=== PATIENT | male | born 1950 | race Caucasian/White ===

== ENCOUNTER 2016-11-05 22:27 | Emergency (ER) | payer BC ==
[~2016-11-05] VITALS: Ht 177.8 cm; Wt 113.2 kg
[~2016-11-05 22:27] MED LIST: ASPI81TA28 PO; MULT-506 PO; OMEG10007 PO
[2016-11-05 22:31] VITALS: TEMP 36.9; Ht 177.8 cm; Wt 113.2 kg
[2016-11-05] MEDS ORDERED: ALL100 PO (23:05)
[2016-11-05] MEDS ORDERED: MELO15TA4 PO (23:05)
[2016-11-05] MEDS ORDERED: PRED20TA2 PO (23:06)
[2016-11-05] MEDS ORDERED: CEFTRIAXONE SOD INJ 1 GM ADDVIAL IV STA (23:08)
[2016-11-05] MEDS ORDERED: SODIUM CHLORIDE 0.9% 1000ML 1,000 ML IV ONE (23:15)
[2016-11-05 23:45] LABS: BASO % 0.2 %; BASO ABS # 0.01 K/uL (0-0.2); COMPLETE YES; EOS % 0.8 %; HEMATOCRIT 39.1 % (42-52); IG% 0.2 %; LYMPH ABS # 1.12 K/uL (1.2-3.4); MEAN CELL VOLUME 83.5 fL (80-100); MEAN CORPUSCULAR HEMOGLOBIN 28.6 pg (25-34); MEAN CORPUSCULAR HGB CONC 34.3 g/dl (32-36); MEAN PLATELET VOLUME 10.2 fL (7.4-10.4); MONO % 14.2 %; NEUT % 67.6 %; PLATELET COUNT 167 K/uL (130-400); RED BLOOD COUNT 4.68 M/uL (4.7-6.1); WHITE BLOOD COUNT 6.57 K/uL (4.8-10.8)
[2016-11-06 00:04] LABS: BUN/CREATININE RATIO 19.4 (10-20); CALCIUM 8.7 mg/dl (8.5-10.1); CREATININE 0.92 mg/dl (0.60-1.40); URIC ACID 5.6 mg/dl (2.6-7.2)
[2016-11-06 00:07] LABS: C-REACTIVE PROTEIN 6.03 mg/dl (0-0.29)
[2016-11-06 00:45] LABS: LYME DISEASE AB IGG NEG (NEG); LYME DISEASE AB IGM NEG (NEG)
[2016-11-06] MEDS ORDERED: SULF800T23 PO (01:34)
[2016-11-06] MEDS ORDERED: SEPTRA DS HOME PACK 1 EA VIAL PO ONE (01:45)
[2016-11-06 01:47] VITALS: BP 127/81; PULSE 62; O2SAT 97
--- NOTE | 2016-11-06 06:21 | EMERGENCY ROOM VISIT NOTE ---
History First contact with patient: 22:58 Chief Complaint: FOOT PAIN Stated Complaint: PROBLEM WITH LEFT FOOT History of Present Illness The patient is a 65 year old male who presents to the Emergency Room with complaints of worsening swelling of his left foot over the past 2-3 days. Patient started with symptoms of a bug bite on the top of his foot and went to the local urgent care clinic 2 days ago. The patient was started on prednisone this did not improve his symptoms. The patient returned to the urgent care clinic this morning where he was started on Keflex. The patient has had worsening redness and swelling, with the swelling now into his left ankle. The patient is not diabetic. He does not recall other injury or trauma. He does not have significant pain and is able to ambulate. He has not had similar symptoms in the past. He is on allopurinol but this does not feel like gout. He rates his current discomfort a 2/10. Review of Systems More than 10 systems were reviewed and otherwise negative with the exception of history of present illness. Past Medical/Surgical History Medical Problems: (1) Fracture Two Ribs-Closed (2) Umbilical Hernia Family History Diabetes mellitus FH: cardiovascular disease Social History Smoking Status: Never Smoker Marital Status: Housing Status: lives with family Occupation Status: employed Current/Historical Medications Scheduled Allopurinol (Allopurinol), 100 MG PO DAILY Aspirin (Aspirin Ec), 81 MG PO QAM Fish Oil ([place]-3), 2 CAP PO QAM Multivitamin (Multivitamin), 1 TAB PO QAM Prednisone (Prednisone Tab), PO UD Sulfa/Trimethoprim (Bactrim Ds 800MG/160MG), 1 TAB PO BID Scheduled PRN Meloxicam (Meloxicam), 15 MG PO DAILY PRN for Pain Allergies Coded Allergies: No Known Allergies (Unverified , 11/22/15) Physical Exam Vital Signs Date Time Temp Pulse Resp B/P (MAP) Pulse Ox O2 Delivery O2 Flow Rate FiO2 11/06/16 01:47 62 18 127/81 97 Room Air 11/06/16 00:37 64 18 132/83 97 Room Air 11/05/16 22:31 36.9 60 20 155/94 97 Room Air Pain Rating (0-10): 0 Physical Exam VITALS: Vitals are noted on the nurse's note and reviewed by myself. Vital signs stable. GENERAL: Well-developed, well-nourished, white male, who is in no acute distress and resting comfortably. Patient is cooperative with the examination. HEAD: Normocephalic atraumatic. HEART: Regular rate and rhythm without murmurs gallops or rubs. LUNGS: Clear to auscultation bilaterally without wheezes, rales or rhonchi. No retractions or accessory muscle use. SKIN: The skin was with noted erythema and edema of the left foot into the left ankle. There is ecchymosis primarily over the first, second, and fourth toes. No lacerations, abrasions, or ulcerations appreciated. No evidence of fungal infection. No puncture wounds or obvious insect bites. Pulses are intact. There is no distinct area of point tenderness. No lymphangitic streaking. Medical Decision & Procedures Laboratory Results 11/05/16 23:20 Red Blood Count 4.68, Mean Corpuscular Volume 83.5, Mean Corpuscular Hemoglobin 28.6, Mean Corpuscular Hemoglobin Concent 34.3, Mean Platelet Volume 10.2, Neutrophils (%) (Auto) 67.6, Lymphocytes (%) (Auto) 17.0, Monocytes (%) (Auto) 14.2, Eosinophils (%) (Auto) 0.8, Basophils (%) (Auto) 0.2, Neutrophils # (Auto ) 4.45, Lymphocytes # (Auto) 1.12, Monocytes # (Auto) 0.93, Eosinophils # (Auto ) 0.05, Basophils # (Auto) 0.01 11/05/16 23:20 Test 11/05/16 23:20 11/05/16 23:31 White Blood Count 6.57 K/uL (4.8-10.8) Red Blood Count 4.68 M/uL (4.7-6.1) Hemoglobin 13.4 g/dL (14.0-18.0) Hematocrit 39.1 % (42-52) Mean Corpuscular Volume 83.5 fL (80-100) Mean Corpuscular Hemoglobin 28.6 pg (25-34) Mean Corpuscular Hemoglobin Concent 34.3 g/dl (32-36) Platelet Count 167 K/uL (130-400) Mean Platelet Volume 10.2 fL (7.4-10.4) Neutrophils (%) (Auto) 67.6 % Lymphocytes (%) (Auto) 17.0 % Monocytes (%) (Auto) 14.2 % Eosinophils (%) (Auto) 0.8 % Basophils (%) (Auto) 0.2 % Neutrophils # (Auto) 4.45 K/uL (1.4-6.5) Lymphocytes # (Auto) 1.12 K/uL (1.2-3.4) Monocytes # (Auto) 0.93 K/uL (0.11-0.59) Eosinophils # (Auto) 0.05 K/uL (0-0.5) Basophils # (Auto) 0.01 K/uL (0-0.2) RDW Standard Deviation 41.4 fL (36.4-46.3) RDW Coefficient of Variation 13.6 % (11.5-14.5) Immature Granulocyte % (Auto) 0.2 % Immature Granulocyte # (Auto) 0.01 K/uL (0.00-0.02) Erythrocyte Sedimentation Rate 16 mm/hr (0-14) Anion Gap 8.0 mmol/L (3-11) Est Creatinine Clear Calc Drug Dose 100.9 ml/min Estimated GFR () 100.8 Estimated GFR (Non- 87.0 BUN/Creatinine Ratio 19.4 (10-20) Uric Acid 5.6 mg/dl (2.6-7.2) Calcium Level 8.7 mg/dl (8.5-10.1) Total Bilirubin 0.4 mg/dl (0.2-1) Aspartate Amino Transf (AST/SGOT) 16 U/L (15-37) Alanine Aminotransferase (ALT/SGPT) 24 U/L (12-78) Alkaline Phosphatase 70 U/L (45-117) C-Reactive Protein 6.03 mg/dl (0-0.29) Total Protein 6.7 gm/dl (6.4-8.2) Albumin 3.3 gm/dl (3.4-5.0) Globulin 3.4 gm/dl (2.5-4.0) Albumin/Globulin Ratio 1.0 (0.9-2) Lyme Disease IgG Antibody NEG (NEG) Lyme Disease IgM Antibody NEG (NEG) Bedside Lactic Acid Venous 0.76 mmol/L (0.90-1.70) Medications Administered Medications (Trade) Dose Ordered Sig/Khanh Route Start Time Stop Time Status Last Admin Dose Admin Ceftriaxone Sodium (Rocephin Inj) 1 gm NOW STAT IV 11/05/16 23:08 11/05/16 23:10 DC 11/05/16 23:19 1 GM Sodium Chloride 1,000 ml @ 999 mls/hr Q1H1M ONCE IV 11/05/16 23:15 11/06/16 00:15 DC 11/05/16 23:19 999 MLS/HR Trimethoprim/ Sulfamethoxazole (Sulfameth/ Trimeth Ds 800/ 160MG Home Pack) 1 homepack UD ONCE PO 11/06/16 01:45 11/06/16 01:46 DC 11/06/16 01:36 1 HOMEPACK ED Course Physical exam and history were performed. Nursing notes and EMR were reviewed. Patient appears to have erythematous edema of the left foot worsening over the past 2 days. The presentation is most consistent with a cellulitis without abscess. The patient does not have significant pain, and evidently has been walking without difficulty. He does have a history of gout, but this does not feel similar. He has not had fever or chills. He is not diabetic. IV access was established and labs were obtained. The patient was hydrated with normal saline and given 1 g IV Rocephin. The patient blood work is as above and was reviewed. He does not have a significantly elevated white blood cell count, gross anemia, bandemia, or significant electrolyte imbalance. Lactic acid is negative. Sedimentation rate and CRP are slightly elevated. X-ray was without obvious findings. Blood cultures are pending. Lyme and uric acid are negative. I discussed the case with my attending physician, Dr. Scruggs, who also evaluated the patient. We agree the patient appears to have a cellulitis. Considering that he is afebrile and not tachycardic, as well as does not appear to be septic, we feel that discharge home with short interval follow-up is appropriate. The patient has had less than 1 full day's worth of Keflex, and will be asked to continue this medication. We will add Bactrim to his regimen. The patient will need to have close follow-up with his primary care physician , preferably in 36-48 hours. He is certainly invited back to the emergency department with any new, worsening, or concerning symptoms. The patient was pleased with this plan and voiced understanding. He rated his discomfort a 0/ 10 at the time of departure. The chart was completed utilizing [employer] Speech Voice Recognition Software. Grammatical errors, random word insertions, pronoun errors, and incomplete sentences are an occasional consequence of this system due to software limitations, ambient noise, and hardware issues. Any formal questions or concerns about the content, text, or information contained within the body of this dictation should be directly addressed to the provider for clarification. . Medical Decision Differential diagnosis: Etiologies such as gout, allergic reaction, cellulitis, abscess, MRSA infection , DVT, necrotizing fasciitis, dermatitis, drug eruption, as well as others were entertained.. Impression Primary Impression: Cellulitis of left foot Departure Information Dispostion Home / Self-Care Condition GOOD Prescriptions Sulfa/Trimethoprim (Bactrim Ds 800MG/160MG) Tab 1 TAB PO BID for 9 Days, #18 TAB Prov: Antonio Mejias PA-C 11/06/16 Forms HOME CARE DOCUMENTATION FORM, Work Instructions, Additional Instructions: Patient was seen and evaluated today in the emergency department fo medical care. Return to work on 11/09/2016. IMPORTANT VISIT INFORMATION Patient Instructions [facility] Additional Instructions You were seen and evaluated today on an emergency basis only. This is not a substitute for, or an effort to provide, complete comprehensive medical care. It is not possible to recognize and treat all injuries or illnesses in a single emergency department visit. For this reason it is recommended that you followup with your primary care physician in the next 2-3 days for recheck of your condition. Continue Keflex. Trimethoprim-Sulfamethoxazole(Bactrim DS): Take one pill twice daily for 10 days for your skin infection. All antibiotics can cause diarrhea. If this occurs and you feel worse or it does not resolve in 1-2 days follow up with your doctor or return to the Emergency Department as this could be signs of serious underlying problems. Any medication can cause an allergic reaction, stop the pills immediately and return to the ER for rash, hives, breathing difficulties, or swelling. If your redness begins to worsen please return to the Emergency Department immediately. You are welcome to return to the emergency department anytime with new, worsening, or concerning symptoms. Work Instructions Additional Work Instructions: Patient was seen and evaluated today in the emergency department for medical care. Return to work on 11/09/2016.
--- NOTE | 2016-11-06 10:21 | DIAGNOSTIC IMAGING REPORT ---
LEFT FOOT 3 VIEWS CLINICAL HISTORY: Left foot swelling and infection. FINDINGS: 3 views of left foot are compared to study dated 02/09/2016. The skeletal structures appear osteopenic. No fracture is seen. There is no bony erosion or periostitis. The Lisfranc joint appears maintained. There is minimal arthritic change at the first metatarsophalangeal joint. The joint spaces of the foot are otherwise well-maintained. A tiny enthesophyte is present at the base of the fifth metatarsal. There is a tiny plantar calcaneal enthesophyte. Marked dorsal soft tissue edema is noted. No subcutaneous gas or radiodense foreign body is seen. IMPRESSION: 1. Marked dorsal soft tissue swelling. No acute bony abnormality is identified in left foot. 2. Mild arthritic change and small heel spur as above. Electronically signed by: Jacques Orozco M.D. 11/06/2016 10:20 AM Dictated Date/Time: 11/06/2016 10:18 AM
[2016-11-07] MEDS ORDERED: CEPH500C2 PO (11:21)
[2016-11-09] MEDS ORDERED: LACTCHW3 PO (15:16)
[2016-11-09] MEDS ORDERED: AMOX875T PO (15:16)
[2016-11-09] MEDS ORDERED: DXY100 PO (15:16)
== END 2016-11-06 01:46 | disposition home or self-care (01) ==
LOC: C.EDB 22:28 → C.EDA 11-06 01:46
DX: L03.116 Cellulitis of left lower limb (principal); Z83.3 Family history of diabetes mellitus; Z82.49 Family history of ischemic heart disease and other diseases of the circulatory system; Z79.82 Long term (current) use of aspirin; Z79.52 Long term (current) use of systemic steroids; Z79.899 Other long term (current) drug therapy

== ENCOUNTER 2016-11-07 10:05 | Inpatient (IN) | payer BC ==
[~2016-11-07] VITALS: Ht 177.8 cm; Wt 112.7 kg
[~2016-11-07 10:05] MED LIST changes: +ALL100 PO; +MELO15TA4 PO; +PRED20TA2 PO; +SULF800T23 PO
[2016-11-07] MEDS ORDERED: SODIUM CHLORIDE 0.9% 1000ML 1,000 ML IV STA (10:59)
[2016-11-07] MEDS ORDERED: CEPH500C2 PO (11:21)
[2016-11-07 11:29] LABS: BASO % 0.6 %; BASO ABS # 0.02 K/uL (0-0.2); COMPLETE YES; EOS % 3.6 %; HEMATOCRIT 42.1 % (42-52); IG% 0.3 %; LYMPH % 31.9 %; LYMPH ABS # 1.15 K/uL (1.2-3.4); MEAN CORPUSCULAR HGB CONC 33.7 g/dl (32-36); MONO % 10.5 %; NEUT % 53.1 %; PLATELET COUNT 175 K/uL (130-400); RED BLOOD COUNT 5.07 M/uL (4.7-6.1); WHITE BLOOD COUNT 3.61 K/uL (4.8-10.8)
[2016-11-07 11:39] LABS: BUN/CREATININE RATIO 12.8 (10-20); CALCIUM 8.7 mg/dl (8.5-10.1)
--- NOTE | 2016-11-07 12:49 | DIAGNOSTIC IMAGING REPORT ---
LEFT FOOT MIN 3 VIEWS ROUTINE CLINICAL HISTORY: Left foot cellulitis, worsening/progressing pain COMPARISON: 11/05/2016 DISCUSSION: Unchanging dorsal soft tissue swelling. Cortical margins remain intact. No acute bony abnormality. No abnormal periosteal reaction. Very small heel spur. IMPRESSION: Soft tissue edema. Small heel spur. No acute bony abnormality. No change from the prior study. Electronically signed by: Pedro Luis Colby M.D. 11/07/2016 12:47 PM Dictated Date/Time: 11/07/2016 12:46 PM
[2016-11-07] MEDS ORDERED: CEFTRIAXONE SOD INJ 1 GM ADDVIAL IV STA (13:29)
--- NOTE | 2016-11-07 14:19 | DIAGNOSTIC IMAGING REPORT ---
Venous Doppler left leg LEFT VENOUS DOPP LOWER EXT UNILAT CLINICAL HISTORY: Left leg cellulitis, calf cramping pain. Edema. TECHNIQUE: Venous Doppler COMPARISON STUDY: None FINDINGS: Normal study IMPRESSION: Normal study Electronically signed by: Pedro Luis Colby M.D. 11/07/2016 2:18 PM Dictated Date/Time: 11/07/2016 2:17 PM
[2016-11-07] MEDS ORDERED: ZOLPIDEM TARTRATE 5 MG TAB PO PRN (16:00)
[2016-11-07] MEDS ORDERED: ALUMINUM/MAGNESIUM/SIMETH (MAALOX MAX) 30 ML UDC PO PRN (16:00)
[2016-11-07] MEDS ORDERED: ACETAMINOPHEN 325 MG TAB PO PRN (16:00)
[2016-11-07] MEDS ORDERED: ONDANSETRON INJ 2 MG/ML 2 ML VIAL IV PRN (16:00)
[2016-11-07] MEDS ORDERED: MAGNESIUM HYDROXIDE SUSP 30 ML UDC PO PRN (16:00)
[2016-11-07] MEDS ORDERED: POLYETHYLENE (MIRALAX) 17 GM PACK PO PRN (16:00)
[2016-11-07] MEDS ORDERED: VANCOMYCIN INJ 2,750 MG in SODIUM CHLORIDE 0.9% 500ML 500 ML IV STA (16:13)
[2016-11-07] MEDS ORDERED: PIPERACILL/TAZOBAC IV 3.375 GM in DEXTROSE 5% 100ML IV STA (16:13)
[2016-11-07] MEDS ORDERED: PIPERACILL/TAZOBAC IV 3.375 GM in DEXTROSE 5% 100ML 100 ML IV SCH (16:15)
[2016-11-07] MEDS ORDERED: PIPERACILL/TAZOBAC CONSULT ACTIVE PRN (16:15)
[2016-11-07] MEDS ORDERED: VANCOMYCIN CONSULT ACTIVE PRN (16:15)
--- NOTE | 2016-11-07 16:15 | History and Physical ---
History & Physical Date & Time of Service: Nov 07, 2016 at 16:05 Chief Complaint: Seen For Cellilitis Of Left Foot/Spots Now Primary Care Physician: Rene Conley M.D. History of Present Illness Source: patient Mr Ta is a 65 yo M presenting with cellulitis of his L foot. He reports it initially started last , 11/01/16, where he noticed a bug bite on the top of his left foot. He noticed some swelling and redness so went to an urgent care, and was started on prednisone for a presumed bug bite (vs gout). He returned two days later as it was not improving, and was started on Keflex 500mg BID. He took that for two days and noticed worsening redness and swelling , so on Sunday 11/05 came to our ED. He was given a dose of IV Rocephin and sent home on PO Bactrim, which he has taken. He noticed worsening of his swelling, redness, and warmth of his foot so decided to come in for evaluation. In the ED, Xrays of the foot were negative for fracture / osteomyelitis. US of the leg was negative for DVT. He is afebrile. He denies any chest pain, shortness of breath, nausea or vomiting. He denies a past history of cellulitis , and is also not diabetic. He reports he recently had a physical and reports everything is well. Past Medical/Surgical History Medical Problems: (1) Fracture Two Ribs-Closed Status: Resolved (2) Umbilical Hernia Status: Chronic PSHx: None Family History Diabetes mellitus FH: cardiovascular disease Social History Smoking Status: Never Smoker Smokeless Tobacco Use: No Alcohol Use: socially Drug Use: none Marital Status: Housing status: lives with family Occupational Status: employed Multi-Drug Resistant Organisms History of MDRO: No Allergies Coded Allergies: No Known Allergies (Unverified , 11/07/16) Home Medications Scheduled Allopurinol (Allopurinol), 100 MG PO DAILY Aspirin (Aspirin Ec), 81 MG PO QAM Cephalexin Monohydrate (Keflex), 500 MG PO QID Fish Oil (Pipestem-3), 2 CAP PO QAM Multivitamin (Multivitamin), 1 TAB PO QAM Sulfa/Trimethoprim (Bactrim Ds 800MG/160MG), 1 TAB PO BID Scheduled PRN Meloxicam (Meloxicam), 15 MG PO DAILY PRN for Pain Review of Systems See HPI for pertinent positives & negatives. A total of 10 systems reviewed and were otherwise negative. Physical Exam Vital Signs Date Time Temp Pulse Resp B/P (MAP) Pulse Ox O2 Delivery O2 Flow Rate FiO2 11/07/16 14:15 46 18 125/79 96 Room Air 11/07/16 12:19 45 18 113/81 97 11/07/16 10:08 36.3 53 18 138/93 96 Room Air General Appearance: WD/WN, no apparent distress Head: normocephalic, atraumatic Eyes: normal inspection, PERRL ENT: hearing grossly normal Neck: supple, no JVD Respiratory/Chest: lungs clear, normal breath sounds, no respiratory distress Cardiovascular: regular rate, rhythm, no murmur Abdomen/GI: normal bowel sounds, non tender, soft Back: no CVA tenderness, normal range of motion Extremities/Musculoskelatal: + pertinent finding (+2 edema to left leg, most pronounced in toes, entire foot up to ankle. R leg and ankle without edema. Left calf is also warmer than right, but without erythema.) Neurologic/Psych: alert, normal mood/affect, normal reflexes, oriented x 3 Skin: + pertinent finding (erythema to entire left foot and bottom of heel. Area of presumed bug bite to dorsal aspect of L foot, proximal to base of great toe.) Lymphatic: no adenopathy Diagnostics Laboratory Results Results Past 24 Hours Test 11/07/16 10:50 11/07/16 12:22 Range/Units White Blood Count 3.61 4.8-10.8 K/uL Red Blood Count 5.07 4.7-6.1 M/uL Hemoglobin 14.2 14.0-18.0 g/dL Hematocrit 42.1 42-52 % Mean Corpuscular Volume 83.0 80-100 fL Mean Corpuscular Hemoglobin 28.0 25-34 pg Mean Corpuscular Hemoglobin Concent 33.7 32-36 g/dl Platelet Count 175 130-400 K/uL Mean Platelet Volume 10.0 7.4-10.4 fL Neutrophils (%) (Auto) 53.1 % Lymphocytes (%) (Auto) 31.9 % Monocytes (%) (Auto) 10.5 % Eosinophils (%) (Auto) 3.6 % Basophils (%) (Auto) 0.6 % Neutrophils # (Auto) 1.92 1.4-6.5 K/uL Lymphocytes # (Auto) 1.15 1.2-3.4 K/uL Monocytes # (Auto) 0.38 0.11-0.59 K/uL Eosinophils # (Auto) 0.13 0-0.5 K/uL Basophils # (Auto) 0.02 0-0.2 K/uL RDW Standard Deviation 40.8 36.4-46.3 fL RDW Coefficient of Variation 13.6 11.5-14.5 % Immature Granulocyte % (Auto) 0.3 % Immature Granulocyte # (Auto) 0.01 0.00-0.02 K/uL Sodium Level 140 136-145 mmol/L Potassium Level 4.0 3.5-5.1 mmol/L Chloride Level 108 98-107 mmol/L Carbon Dioxide Level 26 21-32 mmol/L Anion Gap 6.0 3-11 mmol/L Blood Urea Nitrogen 13 7-18 mg/dl Creatinine 1.00 0.60-1.40 mg/dl Est Creatinine Clear Calc Drug Dose 92.6 ml/min Estimated GFR () 91.1 Estimated GFR (Non- 78.6 BUN/Creatinine Ratio 12.8 10-20 Random Glucose 84 70-99 mg/dl Calcium Level 8.7 8.5-10.1 mg/dl Total Bilirubin 0.5 0.2-1 mg/dl Aspartate Amino Transf (AST/SGOT) 21 15-37 U/L Alanine Aminotransferase (ALT/SGPT) 30 12-78 U/L Alkaline Phosphatase 69 45-117 U/L Total Protein 6.5 6.4-8.2 gm/dl Albumin 3.3 3.4-5.0 gm/dl Globulin 3.2 2.5-4.0 gm/dl Albumin/Globulin Ratio 1.0 0.9-2 Bedside Lactic Acid Venous 0.81 0.90-1.70 mmol/L Microbiology Results 11/07/16 Blood Culture, Received Pending 11/07/16 Blood Culture, Received Pending Diagnostic Radiology LEFT FOOT MIN 3 VIEWS ROUTINE CLINICAL HISTORY: Left foot cellulitis, worsening/progressing pain COMPARISON: 11/05/2016 DISCUSSION: Unchanging dorsal soft tissue swelling. Cortical margins remain intact. No acute bony abnormality. No abnormal periosteal reaction. Very small heel spur. IMPRESSION: Soft tissue edema. Small heel spur. No acute bony abnormality. No change from the prior study. Venous Doppler left leg LEFT VENOUS DOPP LOWER EXT UNILAT CLINICAL HISTORY: Left leg cellulitis, calf cramping pain. Edema. TECHNIQUE: Venous Doppler COMPARISON STUDY: None FINDINGS: Normal study IMPRESSION: Normal study Impression Assessment and Plan R65 yo M with cellulitis of left foot and ankle, likely initiated by bug bite, with failed outpatient treatment x 2 antibiotics over 4 days. Cellulitis of L foot and ankle - Will start on Vanc and Rocephin - If does not improve, will consider adding Aztreonam or Zosyn - Elevate leg off of bed - Minimal ambulation Risk factors for cellulitis - Random glucose 84 today, unlikely diabetic, though if increases will check an HbA1c Gout - Continue allopurinol VTE: Lovenox CODE STATUS: FULL CODE DISPO: Med/Surg Level of Care Med/Surg Resuscitation Status FULL RESUSCITATION VTE Prophylaxis VTE Risk Assessment Done? Y/N: Yes Risk Level: Moderate Given or contraindicated: Enoxaparin (Lovenox)SQ Social Service Consult None Apply Note Resident Physician Supervision Note: I was present with PGY3 Dr. Felicitas Gaitan during the admission history and exam. I discussed the case with the resident and agree with the findings and plan as documented in the note. Any exceptions or clarifications are listed here: none. Pleasant 65yo male with h/o gout who presents with failed outpatient treatment of left foot cellulitis despite use of oral keflex and bactrim along with parenteral rocephin 2 days ago. He has had no systemic symptoms such as fevers or chills. Denies significant pain, especially of the great toe on the left. His cellulitis was preceded by an insect bite to the dorsum of the foot. He apparently was also given some steroids at a local urgent care for possible gout of the left foot but the foot worsened despite such. In the ER today he received rocephin IV. PMH, PSH, allergies, meds, sochx, famhx, ros - reviewed VSS, no fever gen - nad, nontoxic neck - no JVD mouth - MMM heart - RRR, s1, s2, no murmur lungs - CTA b/l abd - soft, NT, BS+, no HSM ext - 1+ edema left ankle, none on right; pulses - DP, pos tib pulses 2+ b/l skin - left foot - there is warm erythema extending from just distal to the left ankle extending towards the toes; the dorsum of the 4th toe has a small area of ecchymoses vs focal cellulitis; the great toe has considerable erythema with more focal areas of ecchymoses; the great toe is NOT tender to touch over the MTP joint; some of the erythema extends to the medial/lateral borders of the foot but not the plantar aspect; mild amount of erythema extending up the posterior leg to the ankle labs - mild leukopenia cbc, bmp otherwise normal blood cx's pending doppler, left leg - neg for DVT left foot x-rays neg for fracture or other pathology A/P: 65yo male with left foot cellulitis. Agree with rocephin/vancomycin. If he fails to respond then add more gram negative coverage as outlined in Dr. Gaitan's note. Follow blood cx's. A review of the EMR shows that his mild leukopenia is chronic. The leading edges of the cellulitis were marked in pen during my visit. Abel Manuel MD Documented By: Abel Manuel Additional Copies To Rene Conley M.D. Resident Tracking Resident Involvement: Resident Care Provided Care Provided: Adult [facility]
--- NOTE | 2016-11-07 16:26 | Pharmacy Progress Note ---
Pharmacy Abx Initial Consult Date of Service Nov 07, 2016. Pharmacy Dosing Scope Date of Consult: 11/07/16 Consultation requested by: Dr. Gaitan Pharmacy is consulted to initiate vancomycin IV dosing therapy, order appropriate labs and adjust drug dose/frequency. Subjective The patient is a 65 year old male admitted on 11/07/16 with left foot cellulitis. This initially started as a bug bite. He was given prednisone by a [facility]. The site worsened and the patient presented to the ED on 11/06/16 and was prescribed an antibiotic (Keflex). The infection worsened and he was admitted today for IV antibiotics. Objective Height (Feet): 5 Height (Inches): 10.00 Weight (Kilograms): 112.700 Vital Signs (Past 12Hrs) Vital Signs Past 12 Hours Date Time Temp Pulse Resp B/P (MAP) Pulse Ox O2 Delivery O2 Flow Rate FiO2 11/07/16 14:15 46 18 125/79 96 Room Air 11/07/16 12:19 45 18 113/81 97 11/07/16 10:08 36.3 53 18 138/93 96 Room Air Lab Results (24Hrs) Laboratory Tests (24 Hours) Test 11/07/16 10:50 White Blood Count 3.61 K/uL (4.8-10.8) L Red Blood Count 5.07 M/uL (4.7-6.1) Hemoglobin 14.2 g/dL (14.0-18.0) Hematocrit 42.1 % (42-52) Mean Corpuscular Volume 83.0 fL (80-100) Mean Corpuscular Hemoglobin 28.0 pg (25-34) Mean Corpuscular Hemoglobin Concent 33.7 g/dl (32-36) Platelet Count 175 K/uL (130-400) Mean Platelet Volume 10.0 fL (7.4-10.4) Neutrophils (%) (Auto) 53.1 % Lymphocytes (%) (Auto) 31.9 % Monocytes (%) (Auto) 10.5 % Eosinophils (%) (Auto) 3.6 % Basophils (%) (Auto) 0.6 % Neutrophils # (Auto) 1.92 K/uL (1.4-6.5) Lymphocytes # (Auto) 1.15 K/uL (1.2-3.4) L Monocytes # (Auto) 0.38 K/uL (0.11-0.59) Eosinophils # (Auto) 0.13 K/uL (0-0.5) Basophils # (Auto) 0.02 K/uL (0-0.2) Micro Results Date/Time Source Procedure Growth Status 11/07/16 11:00 Blood Blood Culture Pending Received 11/07/16 10:50 Blood Blood Culture Pending Received Risk Factors for Resistance * Antimicrobial use within the last 90 days keflex but only for 1 day Assessment & Plan Assessment 65 year old male with left foot cellulitis started on vancomycin and ceftriaxone after 1 day of oral antibiotics. Does not have systemic side effects. No white count. Plan vancomycin for treatment of left foot cellulitis Vancomycin IV * Loading dose: 2750 mg (24.4 mg/kg) * Maintenance dose: 1500 mg IV (13.3 mg/kg) every 10 hours (population pharmacokinetics suggest a half-life of 8.5 hours and an elimination constant of 0.081 hr-1) * Goal trough level for cellulitis : 10 to 15 mcg/mL * Trough/Random level ordered for 11/09/16 prior to 0900 dose * A less than traditional dose has been selected due to likelihood of drug accumulation in obese patients. Pharmacy will continue to follow and will adjust dose/frequency as necessary. Thank you.
--- NOTE | 2016-11-07 16:30 | EMERGENCY ROOM VISIT NOTE ---
History First contact with patient: 10:51 Chief Complaint: INFECTION Stated Complaint: SEEN FOR CELLILITIS OF LEFT FOOT/SPOTS NOW Nursing Triage Summary: here for infection to left foot, placed on keflex, was told if any changes to come back immediately. now i have "spots to back of left leg" History of Present Illness The patient is a 65 year old male who presents to the Emergency Room via private vehicle with complaints of "cellulitis of left foot/spots now". The patient states that he was seen here a few days ago, given antibiotics and has improved in one aspect, is concerned he may have worsening another. He states that this past Saturday he was seen at urgent care, as he had developed redness around his left toes. He states that this progress, and a Saturday evening he was seen here where he was given 1 g of Rocephin orally, and then Bactrim added to the already an established prescription of Keflex. He's been taking this and notes the redness looks a lot better, but today he notes that the back of the leg now has red spots, and is tender. He notes no pain. He denies any chest pain, shortness of breath, fevers, chills, nausea, vomiting. Review of Systems A complete 10-point Review of Systems was discussed with the patient, with pertinent positives and negatives listed in the History of Present Illness. All remaining Review of Systems questions can be considered negative unless otherwise specified. Past Medical/Surgical History Medical Problems: (1) Cellulitis of left leg (2) Fracture Two Ribs-Closed (3) Umbilical Hernia Family History Diabetes mellitus FH: cardiovascular disease Social History Smoking Status: Never Smoker Smokeless Tobacco Use: No Drug Use: none Marital Status: Housing Status: lives with family Occupation Status: employed Current/Historical Medications Scheduled Allopurinol (Allopurinol), 100 MG PO DAILY Aspirin (Aspirin Ec), 81 MG PO QAM Cephalexin Monohydrate (Keflex), 500 MG PO QID Fish Oil ([place]-3), 2 CAP PO QAM Multivitamin (Multivitamin), 1 TAB PO QAM Sulfa/Trimethoprim (Bactrim Ds 800MG/160MG), 1 TAB PO BID Scheduled PRN Meloxicam (Meloxicam), 15 MG PO DAILY PRN for Pain Allergies Coded Allergies: No Known Allergies (Unverified , 7/5/17) Physical Exam Vital Signs Date Time Temp Pulse Resp B/P (MAP) Pulse Ox O2 Delivery O2 Flow Rate FiO2 11/07/16 14:15 46 18 125/79 96 Room Air 11/07/16 12:19 45 18 113/81 97 11/07/16 10:08 36.3 53 18 138/93 96 Room Air Physical Exam VITAL SIGNS - Vital signs and nursing notes were reviewed. Patient is afebrile , hypertensive at 138/93, nontoxic tachycardic and is saturating well on room air at 96%. GENERAL -65-year-old male appearing his stated age who is in no acute distress. Communicates well with provider and answers questions appropriately. SKIN - there is an erythematous rash of the left foot that is extending up the posterior aspect of the calf. This is consistent with cellulitis. HEAD - NC/AT. LUNGS - Chest wall symmetric without accessory muscle use, intercostals retractions, or central cyanosis. Normal vesicular breath sounds CTA B/L. No wheezes, rales, or rhonchi appreciated. CARDIAC - RRR with S1/S2. No murmur, rubs, or gallops appreciated. ABDOMEN - Abdominal contour [] without pulsations or visible masses. BS normoactive all four quadrants. No tenderness, palpable masses, hepatosplenomegaly, or ascites noted. EXTREMITIES - No clubbing or peripheral cyanosis. No pretibial edema present. Full range of motion of the left foot. Minimal tenderness to palpation. No neurovascular deficit. Medical Decision & Procedures ER Provider Diagnostic Interpretation: LEFT FOOT MIN 3 VIEWS ROUTINE CLINICAL HISTORY: Left foot cellulitis, worsening/progressing pain COMPARISON: 11/05/2016 DISCUSSION: Unchanging dorsal soft tissue swelling. Cortical margins remain intact. No acute bony abnormality. No abnormal periosteal reaction. Very small heel spur. IMPRESSION: Soft tissue edema. Small heel spur. No acute bony abnormality. No change from the prior study. Electronically signed by: Pedro Luis Colby M.D. 11/07/2016 12:47 PM Dictated Date/Time: 11/07/2016 12:46 PM Venous Doppler left leg LEFT VENOUS DOPP LOWER EXT UNILAT CLINICAL HISTORY: Left leg cellulitis, calf cramping pain. Edema. TECHNIQUE: Venous Doppler COMPARISON STUDY: None FINDINGS: Normal study IMPRESSION: Normal study Electronically signed by: Pedro Luis Colby M.D. 11/07/2016 2:18 PM Dictated Date/Time: 11/07/2016 2:17 PM Laboratory Results 11/07/16 10:50 Red Blood Count 5.07, Mean Corpuscular Volume 83.0, Mean Corpuscular Hemoglobin 28.0, Mean Corpuscular Hemoglobin Concent 33.7, Mean Platelet Volume 10.0, Neutrophils (%) (Auto) 53.1, Lymphocytes (%) (Auto) 31.9, Monocytes (%) (Auto) 10.5, Eosinophils (%) (Auto) 3.6, Basophils (%) (Auto) 0.6, Neutrophils # (Auto ) 1.92, Lymphocytes # (Auto) 1.15, Monocytes # (Auto) 0.38, Eosinophils # (Auto ) 0.13, Basophils # (Auto) 0.02 11/07/16 10:50 Test 11/07/16 10:50 11/07/16 12:22 White Blood Count 3.61 K/uL (4.8-10.8) Red Blood Count 5.07 M/uL (4.7-6.1) Hemoglobin 14.2 g/dL (14.0-18.0) Hematocrit 42.1 % (42-52) Mean Corpuscular Volume 83.0 fL (80-100) Mean Corpuscular Hemoglobin 28.0 pg (25-34) Mean Corpuscular Hemoglobin Concent 33.7 g/dl (32-36) Platelet Count 175 K/uL (130-400) Mean Platelet Volume 10.0 fL (7.4-10.4) Neutrophils (%) (Auto) 53.1 % Lymphocytes (%) (Auto) 31.9 % Monocytes (%) (Auto) 10.5 % Eosinophils (%) (Auto) 3.6 % Basophils (%) (Auto) 0.6 % Neutrophils # (Auto) 1.92 K/uL (1.4-6.5) Lymphocytes # (Auto) 1.15 K/uL (1.2-3.4) Monocytes # (Auto) 0.38 K/uL (0.11-0.59) Eosinophils # (Auto) 0.13 K/uL (0-0.5) Basophils # (Auto) 0.02 K/uL (0-0.2) RDW Standard Deviation 40.8 fL (36.4-46.3) RDW Coefficient of Variation 13.6 % (11.5-14.5) Immature Granulocyte % (Auto) 0.3 % Immature Granulocyte # (Auto) 0.01 K/uL (0.00-0.02) Prothrombin Time 10.3 SECONDS (9.0-12.0) Prothromb Time International Ratio 1.0 (0.9-1.1) Activated Partial Thromboplast Time 31.5 SECONDS (21.0-31.0) Partial Thromboplastin Ratio 1.2 Anion Gap 6.0 mmol/L (3-11) Est Creatinine Clear Calc Drug Dose 92.6 ml/min Estimated GFR () 91.1 Estimated GFR (Non- 78.6 BUN/Creatinine Ratio 12.8 (10-20) Calcium Level 8.7 mg/dl (8.5-10.1) Total Bilirubin 0.5 mg/dl (0.2-1) Aspartate Amino Transf (AST/SGOT) 21 U/L (15-37) Alanine Aminotransferase (ALT/SGPT) 30 U/L (12-78) Alkaline Phosphatase 69 U/L (45-117) Total Protein 6.5 gm/dl (6.4-8.2) Albumin 3.3 gm/dl (3.4-5.0) Globulin 3.2 gm/dl (2.5-4.0) Albumin/Globulin Ratio 1.0 (0.9-2) Bedside Lactic Acid Venous 0.81 mmol/L (0.90-1.70) Medications Administered Medications (Trade) Dose Ordered Sig/Khanh Route Start Time Stop Time Status Last Admin Dose Admin Sodium Chloride 1,000 ml @ 999 mls/hr Q1H1M STAT IV 11/07/16 10:59 11/07/16 11:59 DC 11/07/16 10:59 999 MLS/HR Ceftriaxone Sodium (Rocephin Inj) 1 gm NOW STAT IV 11/07/16 13:29 11/07/16 13:30 DC 11/07/16 14:27 1 GM Medical Decision Patient was seen and evaluated as above. After obtaining a thorough history and physical examination IV access was initiated and the above workup was performed. I concerned the patient may have improvement of one area the infection, but a worsening in the other region. X-ray and ultrasound were obtained. Ultrasound negative. Radiograph negative. Patient has a decreased white count from previous. Lactic is negative. PTT slightly high at 31.5. No evidence of kidney or liver failure. He was given 1 g Rocephin here. I do believe that the patient should be managed in the inpatient setting with IV antibiotics until stable for outpatient management. Please refer to further documentation regarding his stay. In the evaluation and treatment of this patient following differential diagnoses were entertained: Worsening cellulitis, necrotizing fasciitis, sepsis , among others. Impression Primary Impression: Cellulitis of left foot Additional Impression: Cellulitis of left leg Departure Information Dispostion Admitted as an inpatient Condition FAIR Referrals Rene Conley M.D. (PCP) Patient Instructions [facility] Problem Qualifiers
[2016-11-07 16:36] LABS: PARTIAL THROMBOPLASTIN RATIO 1.2; PROTHROMBIN TIME (PATIENT) 10.3 SECONDS (9.0-12.0)
[2016-11-07 17:44] VITALS: BP 143/87; PULSE 46; TEMP 36.4; O2SAT 98; Ht 177.8 cm; Wt 112.7 kg
[2016-11-07] MEDS: ENOXAPARIN 40 MG/0.4 ML SYR SQ SCH (21:15)
[2016-11-08 00:03] VITALS: BP 154/96; PULSE 45; TEMP 36.4; O2SAT 97
[2016-11-08] MEDS: VANCOMYCIN INJ 1,500 MG in SODIUM CHLORIDE 0.9% 500ML 500 ML IV SCH ×3 (03:25→22:36)
[2016-11-08] MEDS ORDERED: NURSING VERBAL MED ORDER ONE (06:15)
[2016-11-08 07:57] VITALS: BP 148/85; PULSE 53; TEMP 36.7; O2SAT 97
[2016-11-08 08:00] VITALS: O2SAT 97
[2016-11-08] MEDS: ALLOPURINOL 100 MG TAB PO SCH (08:00)
[2016-11-08] MEDS: ASPIRIN 81 MG ECTAB PO SCH (08:19)
[2016-11-08] MEDS: MULTIVITAMIN TAB PO SCH (08:19)
[2016-11-08] MEDS: CEFTRIAXONE SOD INJ 1 GM in DEXTROSE 5% ADD-VANTAGE 50ML 50 ML IV SCH (13:11)
[2016-11-08 15:57] VITALS: BP 138/87; PULSE 48; TEMP 36.6; O2SAT 97
[2016-11-08 16:20] VITALS: O2SAT 97
--- NOTE | 2016-11-08 19:29 | Progress Note ---
Subjective Date of Service: Nov 08, 2016. Subjective Pt evaluation today including: conversation w/ patient, physical exam, chart review, lab review Pain: denies any foot pain PO Intake: normal Voiding: no voiding problems Patient thinks that the "left foot looks better." Not as swollen either. No other new complaints. Problem List Medical Problems: (1) Cellulitis of left foot Status: Acute (2) Cellulitis of left foot Status: Acute Review of Systems Constitutional: No fever, No chills Respiratory: No shortness of breath Objective Vital Signs Date Time Temp Pulse Resp B/P (MAP) Pulse Ox O2 Delivery O2 Flow Rate FiO2 11/08/16 15:57 36.6 48 16 138/87 (104) 97 Room Air 11/08/16 08:00 97 Room Air 11/08/16 07:57 36.7 53 18 148/85 (106) 97 Room Air 11/08/16 00:03 36.4 45 20 154/96 (115) 97 Room Air 11/07/16 23:43 Room Air Physical Exam General Appearance: no apparent distress ENT: pharynx normal Neck: no JVD Respiratory/Chest: lungs clear, no respiratory distress, no accessory muscle use Cardiovascular: regular rate, rhythm, no gallop, no murmur Abdomen: normal bowel sounds, non tender, soft, no organomegaly Extremities: + pedal edema (mild, left foot/ankle) Neurologic/Psychiatric: alert, oriented x 3 Skin: + pertinent finding (cellulitis of left foot much better today; erythema in the forefoot is retreating from the previously placed leading edge pen line; the erythema is less intensely red; the worst erythema was of the great toe and this, too, is much less; there is overall improved edema of the foot; ecchymoses remains over the great toe and 4th toe) Assessment and Plan 65yo male with: 1. left foot cellulitis - improved. Cont rocephin/vanco. Follow blood cx's; thus far negative. 2. gout - not active at this time. Cont allopurinol for prophylaxis. 3. DVT proph - lovenox once daily. 4. leukopenia - appears chronic based on records; recheck CBC in am for stability. possible d/c tomorrow; worst case scenario on Saturday Continued [facility] stay due to: multiple IV medications needed Discharge planning: home
[2016-11-08] MEDS: OXYCODONE/ACETAMINOPHEN 5-325 TAB PO PRN (22:36)
[2016-11-08] MEDS: ENOXAPARIN 40 MG/0.4 ML SYR SQ SCH (22:37)
[2016-11-08 23:01] VITALS: BP 126/81; PULSE 50; TEMP 36.7; O2SAT 97
[2016-11-09] MEDS: ALLOPURINOL 100 MG TAB PO SCH (08:00)
[2016-11-09] MEDS: ASPIRIN 81 MG ECTAB PO SCH (08:05)
[2016-11-09] MEDS: MULTIVITAMIN TAB PO SCH (08:05)
[2016-11-09 08:06] VITALS: BP 152/94; PULSE 51; TEMP 36.5; O2SAT 98
[2016-11-09] MEDS: OXYCODONE/ACETAMINOPHEN 5-325 TAB PO PRN (08:06)
[2016-11-09] MEDS ORDERED: VANCOMYCIN TROUGH SCH (08:30)
[2016-11-09 08:42] LABS: BASO % 0.9 %; BASO ABS # 0.03 K/uL (0-0.2); COMPLETE YES; EOS % 3.8 %; HEMATOCRIT 43.6 % (42-52); IG% 0.3 %; LYMPH % 26.6 %; LYMPH ABS # 0.91 K/uL (1.2-3.4); MEAN CELL VOLUME 84.7 fL (80-100); MEAN CORPUSCULAR HEMOGLOBIN 28.7 pg (25-34); MEAN CORPUSCULAR HGB CONC 33.9 g/dl (32-36); MONO % 11.1 %; NEUT % 57.3 %; PLATELET COUNT 173 K/uL (130-400); RED BLOOD COUNT 5.15 M/uL (4.7-6.1); WHITE BLOOD COUNT 3.42 K/uL (4.8-10.8)
[2016-11-09] MEDS: VANCOMYCIN INJ 1,500 MG in SODIUM CHLORIDE 0.9% 500ML 500 ML IV SCH (09:20)
[2016-11-09 09:28] LABS: BUN/CREATININE RATIO 12.5 (10-20); CREATININE 1.1 mg/dl (0.60-1.40); POTASSIUM 4.2 mmol/L (3.5-5.1)
--- NOTE | 2016-11-09 09:53 | Pharmacy Progress Note ---
Pharmacy Abx Dose Short Note Date of Service Nov 09, 2016. Assessment & Plan Assessment 65 year old male receiving IV Vancomycin and Ceftriaxone (not a consult) for treatment of L foot cellulitis Patient at risk for drug accumulation due to obesity with BMI 35.7 kg/m2. Therefore, will slightly decr' dose by ~6% and slightly extend dosing interval to target a lower trough level. Day # 3/10 of antimicrobial therapy. Plan Vancomycin * Trough level of 16.1 mcg/mL is supratherapeutic * Change to 1400 mg (~12.4mg/kg) IV every 12 hours * Goal trough level for cellulitis : 10 to 15 mcg/mL * Trough level ordered for: 11/11/16 @ 0930 (prior to 4th dose and therefore should be reflective of steady state) Pharmacy will continue to follow and will adjust dose/frequency as necessary. Thank you.
[2016-11-09] MEDS: CEFTRIAXONE SOD INJ 1 GM in DEXTROSE 5% ADD-VANTAGE 50ML 50 ML IV SCH (13:37)
[2016-11-09] MEDS ORDERED: AMOX875T PO (15:16)
[2016-11-09] MEDS ORDERED: LACTCHW3 PO (15:16)
[2016-11-09] MEDS ORDERED: DXY100 PO (15:16)
[2016-11-09 15:17] VITALS: BP 145/88; PULSE 54; TEMP 36.8; O2SAT 98
--- NOTE | 2016-11-09 15:24 | Discharge Instructions ---
Discharge Instructions Date of Service Nov 09, 2016. Admission Reason for Admission: Cellulitis Of Left Foot And Leg Discharge Discharge Diagnosis / Problem: Cellulitis (skin infection) of left foot Discharge Goals Goal(s): Learn about illness, Diagnostic testing, Therapeutic intervention Activity Recommendations Activity Limitations: resume your previous activity Exercise/Sports Limitations: gradually increase as tolerated Shower/Bathe: no limitations Driving or Machine Use: no limitations would avoid swimming for about 1 week due to left foot infection . Instructions / Follow-Up Instructions / Follow-Up From Dr. Manuel - 1. Antibiotics for your left foot infection - * please stop all of your previous antibiotics * please take the following 2 antibiotics: * augmentin (amoxicillin-clavulanate) 875mg twice daily for 10 days - START AM of 11/10/16 * doxycycline 100mg twice daily for 10 days - START TONIGHT on 11/09/16 * both antibiotics can cause diarrhea; thus, please take probiotics for 10 days * a prescription was sent to your pharmacy for these as well * the doxycycline can cause heartburn - please take with food * the doxycycline can also cause a rash if you go out into the sun * be sure to use sunscreen and cover up when going out into the sun over the next 10 days 2. While resting at home elevate your left foot/leg on a few pillows; this helps with drainage and speeds up resolution of the infection. 3. You may return to work on 11/13/16. 4. Please follow-up with Dr. Conley THIS SATURDAY IF AT ALL POSSIBLE TO HAVE YOUR FOOT RECHECKED. 5. Return to [facility] if - * you develop fever greater than 100.4 degrees * your redness/swelling of the left foot worsens despite the 2 antibiotics * you develop severe pain of the foot * you develop foul-smelling drainage of the foot Current Hospital Diet Patient's current hospital diet: AHA Diet (Heart Healthy) Discharge Diet Recommended Diet: Regular Diet Procedures Procedures Performed: 1. left foot x-ray - normal. 2. left leg ultrasound with no evidence for a blood clot. Pending Studies Studies pending at discharge: no Work Instructions Return To Work: after follow-up Lifting Limitations: none Additional Instructions: Brad was hospitalized at [facility] from 11/07/16 to 11/09/16. He likely can return to work on 11/13/16. Medical Emergencies . Who to Call and When: Medical Emergencies: If at any time you feel your situation is an emergency, please call 911 immediately. . Non-Emergent Contact Non-Emergency issues call your: Primary Care Provider Call Non-Emergent contact if: temperature is above 100.5, wound has increased drainage, wound has increased redness, wound has increased pain, you have any medication questions . . "Provider Documentation" section prepared by Abel Manuel. . VTE Core Measure Inpt VTE Proph given/why not?: Enoxaparin (Lovenox)SQ
[2016-11-09 15:48] VITALS: BP 145/88; PULSE 54; TEMP 36.8; O2SAT 98
[2016-11-09] MEDS ORDERED: VANCOMYCIN INJ 1,400 MG in SODIUM CHLORIDE 0.9% 500ML 500 ML IV SCH (22:00)
[2016-11-09] MEDS ORDERED: VANCOMYCIN INJ 1,500 MG in SODIUM CHLORIDE 0.9% 500ML 500 ML IV SCH (22:00)
[2016-11-11] MEDS ORDERED: VANCOMYCIN TROUGH ONE (09:30)
--- NOTE | 2016-11-18 23:43 | Discharge Summary ---
Discharge Summary Date of Service Nov 18, 2016. Discharge Summary Admission Date: Nov 07, 2016 at 15:54 Discharge Date: Nov 09, 2016 Discharge Disposition: Home Principal Diagnosis: left foot cellulitis Problems/Secondary Diagnoses: 1. h/o gout 2. leukopenia - chronic 3. elevated blood pressure without diagnosis of HTN Procedures: LLE venous duplex study negative for DVT x-rays of left foot negative for fracture, osteomyelitis, etc Medication Reconciliation New Medications: Amoxicillin & Pot Clavulanate (Augmentin 875-125 mg) 1 Tab Tab 875 MG PO BID for 10 Days, #20 TAB 0 Refills begin AM of 11/10/16 Doxycycline Hyclate (Doxycycline Hyclate) 100 Mg Cap 100 MG PO BID for 10 Days, #20 TABS 0 Refills begin evening of 11/09/16 Lactobacillus (Lactinex) Chw 3 TAB PO TID for 10 Days, #90 CHW 0 Refills Continued Medications: Allopurinol (Allopurinol) 100 Mg Tab 100 MG PO DAILY Fish Oil ([place]-3) 1 Ea Cap 2 CAP PO QAM, CAP Multivitamin (Multivitamin) Tab 1 TAB PO QAM, TAB Discontinued Medications: Aspirin (Aspirin Ec) 81 Mg Tab 81 MG PO QAM Cephalexin Monohydrate (Keflex) 500 Mg Cap 500 MG PO QID for 10 Days, #40 CAP Meloxicam (Meloxicam) 15 Mg Tab 15 MG PO DAILY PRN for Pain Sulfa/Trimethoprim (Bactrim Ds 800MG/160MG) Tab 1 TAB PO BID for 9 Days, #18 TAB Discharge Exam Physical Exam: General Appearance: no apparent distress ENT: pharynx normal Neck: no JVD Respiratory/Chest: lungs clear, no respiratory distress, no accessory muscle use Cardiovascular: regular rate, rhythm, no gallop, no murmur, normal peripheral pulses Abdomen / GI: normal bowel sounds, non tender, soft, no organomegaly Extremities: no pedal edema (right foot/ankle), + pedal edema (trace, left foot/ankle ), + pertinent finding (pulses b/l feet 2+ ) Neurologic/Psychiatric: alert, oriented x 3 Skin: + pertinent finding (resolving cellulitis of left foot (mild erythema of great toe and to a lesser extent the other toes); mild erythema of dorsum of foot; plantar aspect without involvement; left ankle and left distal tib-fib area without erythema ) Hospital Course HISTORY OF PRESENT ILLNESS: Mr Ta is a 65yo male presenting with cellulitis of his left foot. He reports it initially started last , 11/01/16, where he noticed a bug bite on the top of his left foot. He noticed some swelling and redness so he went to an urgent care, and was started on prednisone for a presumed bug bite ( vs gout). He returned two days later as it was not improving, and was started on Keflex 500mg BID. He took that for two days and noticed worsening redness and swelling, so on Sunday 11/05 came to our ED. He was given a dose of IV Rocephin and sent home on PO Bactrim, which he has taken. He noticed worsening of his swelling, redness, and warmth of his foot so decided to come in for evaluation. In the ED, Xrays of the foot were negative for fracture / osteomyelitis. US of the leg was negative for DVT. He is afebrile. He denies any chest pain, shortness of breath, nausea or vomiting. He denies a past history of cellulitis , and is also not diabetic. He reports he recently had a physical and reports everything is well. HOSPITAL COURSE: The patient's left foot cellulitis improved nicely with use of IV rocephin & vancomycin. Blood cultures remained negative while here He remained afebrile & hemodynamically stable. He had no complicating gout or DVT. He was transitioned to oral doxycycline and augmentin at discharge along with probiotics. He will need close PCP follow-up to ensure ongoing improvement and resolution. Total Time Spent: Less than 30 minutes This includes examination of the patient, discharge planning, medication reconciliation, and communication with other providers. Discharge Instructions Please refer to the electronic Patient Visit Report (Discharge Instructions) for additional information. Follow-Up see. Dr. Conley, PCP, within 5-7 days Additional Copies To Rene Conley M.D.
== END 2016-11-09 17:00 | disposition home or self-care (01) | DRG 603 ==
LOC: C.EDB 10:07 → C.MS4W 15:54 → ENRESERV 16:17
PROVIDERS: ADMIT Internal Medicine; ATTEND Internal Medicine
DX: L03.116 Cellulitis of left lower limb (principal); M1A.9XX0 Chronic gout, unspecified, without tophus (tophi); R03.0 Elevated blood-pressure reading, without diagnosis of hypertension; Z83.3 Family history of diabetes mellitus; Z88.2 Allergy status to sulfonamides

== ENCOUNTER → 2017-02-01 | Outpatient (CLI) | payer BC ==
[~2017-02-01] MED LIST changes: +AMOX875T PO; -ASPI81TA28 PO; +DXY100 PO; +LACTCHW3 PO; -MELO15TA4 PO; -PRED20TA2 PO; -SULF800T23 PO
[2017-02-01 10:14] LABS: BLOOD UREA NITROGEN 15 mg/dl (7-18); CALCIUM 8.8 mg/dl (8.5-10.1); CARBON DIOXIDE 29 mmol/L (21-32); CHLORIDE 107 mmol/L (98-107); GLUCOSE 88 mg/dl (70-99); POTASSIUM 4.4 mmol/L (3.5-5.1); SODIUM 140 mmol/L (136-145)
[2017-02-01 10:18] LABS: CHOLESTEROL 149 mg/dl (0-200); HDL CHOLESTEROL 37 mg/dl; LDL CHOLESTEROL CALCULATED 77 mg/dl; TRIGLYCERIDES 174 mg/dl (0-150); URIC ACID 5.2 mg/dl (2.6-7.2); VERY LOW DENSITY LIPOPROT CALC 35 mg/dl
== END | disposition home or self-care (01) ==
LOC: C.LAB 09:03
PROVIDERS: ATTEND Family Medicine
DX: E78.2 Mixed hyperlipidemia (principal); I10 Essential (primary) hypertension; M10.00 Idiopathic gout, unspecified site

== ENCOUNTER → 2017-09-09 | Outpatient (CLI) | payer BC ==
[2017-09-09 12:09] LABS: HEMATOCRIT 42.6 % (42-52); HEMOGLOBIN 14.4 g/dL (14.0-18.0); MEAN CELL VOLUME 84.4 fL (80-100); MEAN CORPUSCULAR HEMOGLOBIN 28.5 pg (25-34); MEAN CORPUSCULAR HGB CONC 33.8 g/dl (32-36); MEAN PLATELET VOLUME 10.2 fL (7.4-10.4); PLATELET COUNT 148 K/uL (130-400); RED CELL DISTRIBUTION WIDTH CV 14.4 % (11.5-14.5); RED CELL DISTRIBUTION WIDTH SD 43.9 fL (36.4-46.3); WHITE BLOOD COUNT 3.08 K/uL (4.8-10.8)
[2017-09-09 12:50] LABS: ALBUMIN 3.7 gm/dl (3.4-5.0); ALT/SGPT 48 U/L (12-78); AST/SGOT 34 U/L (15-37); BLOOD UREA NITROGEN 13 mg/dl (7-18); CALCIUM 8.5 mg/dl (8.5-10.1); CARBON DIOXIDE 27 mmol/L (21-32); CREATININE 1.05 mg/dl (0.60-1.40); GLUCOSE 88 mg/dl (70-99); SODIUM 139 mmol/L (136-145)
[2017-09-09 12:52] LABS: ALKALINE PHOSPHATASE 82 U/L (45-117)
== END | disposition home or self-care (01) ==
LOC: C.LAB 10:41
PROVIDERS: ATTEND Family Medicine
DX: D64.9 Anemia, unspecified (principal); R10.84 Generalized abdominal pain

== ENCOUNTER → 2017-11-28 | Day surgery (SDC) | payer BC ==
[2017-11-27 09:08] VITALS: Ht 177.8 cm; Wt 110.5 kg
[~2017-11-28] VITALS: Ht 177.8 cm; Wt 110.5 kg
[~2017-11-28] MED LIST changes: -AMOX875T PO; +ASPI81TA28 PO; -DXY100 PO; +FENTANYL CITRATE INJ 50 MCG/1 ML 2 ML VIAL ONE; +GLUCTAB7 PO; -LACTCHW3 PO; +LIDOCAINE HCL 2% 2 ML VIAL (20MG/ML) ONE; -OMEG10007 PO; +OMEP-334 PO; +PROPOFOL IV EMULSION 10 MG/ML 20 ML VIAL ONE
--- NOTE | 2017-11-28 15:06 | Endo History and Physical ---
History & Physical Date of Service: Nov 28, 2017. Chief Complaint: Swallowing difficulty Referring Physician: Dr Rene Conley History of Present Illness 66 yo CM who presents for EGD secondary to dysphagia. Past Medical History Other Past Surgical History Hx Cardiac Surgery: No Hx Internal Defibrillator: No Hx Pacemaker: No Hx Abdominal Surgery: Yes (Appendix, hernia repair) Hx of Implantable Prosthesis: No Hx Post-Op Nausea and Vomiting: No Hx Cancer Surgery: No Hx Thoracic Surgery: No Hx Orthopedic: Yes (R KNEE MENSICUS REPAIR) Hx Urinary Tract Surgery: No Family History None Social History Smoking Status: Never Smoker Hx Substance Use: No Hx Alcohol Use: No Allergies Coded Allergies: No Known Allergies (Unverified , 11/28/17) Current Medications Reported Home Medications Medications Dose Route/Sig Max Daily Dose Days Date Category Glucosamine Chondroitin ([id number]-[id number]-Xkk C-) 1 Tab Tab 1 Tab PO DAILY 11/27/17 Reported Aspirin Ec (Aspirin) 81 Mg Tab 81 Mg PO DAILY 11/27/[address] (Omeprazole) 40 Mg Cap 1 Tab PO QPM 11/27/17 Reported Allopurinol 100 Mg Tab 100 Mg PO DAILY 11/05/16 Reported Multivitamin (Multivitamins) Tab 1 Tab PO QAM 04/21/14 Reported Vital Signs Weight (Kilograms): 110.45 Height (Feet): 5 Height (Inches): 10 Date Time Temp Pulse Resp B/P (MAP) Pulse Ox O2 Delivery O2 Flow Rate FiO2 11/28/17 14:28 36.6 50 20 115/80 (92) 96 Room Air Physical Exam General Appearance: WD/WN, no apparent distress Respiratory/Chest: Auscultation: breath sounds normal Cardiovascular: Heart Auscultation: RRR Abdomen: Bowel Sounds: normal Inspection & Palpation: soft, non-distended, no tenderness, guarding & rebound Assessment and Plan Assessment: 66 yo CM who presents for EGD secondary to dysphagia. Plan: Proceed with EGD.
--- NOTE | 2017-11-28 15:29 | GI REPORT ---
Patient Name: Brad Ta Procedure Date: 11/28/2017 3:03 PM Date of : 1950 Admit Type: Outpatient Age: 66 Gender: Male Attending MD: Jackson Brizuela DO Procedure: Upper GI endoscopy Providers: Jackson Brizuela DO Referring MD: Rene Conley Indications: Dysphagia Medicines: Monitored Anesthesia Care Complications: No immediate complications. Estimated Blood Loss: Estimated blood loss: none. Procedure: Pre-Anesthesia Assessment: - Prior to the procedure, a History and Physical was performed, and patient medications and allergies were reviewed. The patient's tolerance of previous anesthesia was also reviewed. The risks and benefits of the procedure and the sedation options and risks were discussed with the patient. All questions were answered, and informed consent was obtained. Prior Anticoagulants: The patient has taken aspirin, last dose was 1 day prior to procedure. ASA Grade Assessment: II - A patient with mild systemic disease. After reviewing the risks and benefits, the patient was deemed in satisfactory condition to undergo the procedure. After obtaining informed consent, the endoscope was passed under direct vision. Throughout the procedure, the patient's blood pressure, pulse, and oxygen saturations were monitored continuously. The scope was introduced through the mouth, and advanced to the second part of duodenum. The upper GI endoscopy was accomplished without difficulty. The patient tolerated the procedure well. Findings: No endoscopic abnormality was evident in the esophagus to explain the patient's complaint of dysphagia. It was decided, however, to proceed with dilation of the entire esophagus. A guidewire was placed and the scope was withdrawn. Dilation was performed with a Savary dilator with mild resistance at 51 Fr and 54 Fr. The stomach was normal. The examined duodenum was normal. Impression: - No endoscopic esophageal abnormality to explain patient's dysphagia. Esophagus dilated. Dilated. - Normal stomach. - Normal examined duodenum. - No specimens collected. Recommendation: - Resume previous diet. - Continue present medications. - Return to GI office as previously scheduled. Jackson Brizuela DO 11/28/2017 3:29:06 PM This report has been signed electronically. Note Initiated On: 11/28/2017 3:03 PM Number of Addenda: 0 I attest to the content of the Intraoperative Record and orders documented therein, exceptions below {[id number]}
--- NOTE | 2017-11-28 15:30 | Discharge Instructions ---
Endoscopy Patient Instructions Date / Procedure(s) Performed Nov 28, 2017. EGD Allergy Information Coded Allergies: No Known Allergies (Unverified , 11/28/17) Discharge Date / Findings Nov 28, 2017. Esophageal dilation to 18 mm Medication Instructions Stopped Medication(s): ASA 81 mg OK to resume all medications today as prescribed Reported Home Medications Medications Dose Route/Sig Max Daily Dose Days Date Category Glucosamine Chondroitin (Gjouremnuad-Usfcaiisshw-Cjf C-) 1 Tab Tab 1 Tab PO DAILY 11/27/17 Reported Aspirin Ec (Aspirin) 81 Mg Tab 81 Mg PO DAILY 11/27/[address] (Omeprazole) 40 Mg Cap 1 Tab PO QPM 11/27/17 Reported Allopurinol 100 Mg Tab 100 Mg PO DAILY 11/05/16 Reported Multivitamin (Multivitamins) Tab 1 Tab PO QAM 04/21/14 Reported Provider Instructions Activity Restrictions - No exercising or heavy lifting for 24 hours. - Do not drink alcohol the day of the procedure. - Do not drive a car or operate machinery until the day after the procedure. - Do not make any important decisions or sign important papers in 24 hours after the procedure. Following Day: - Return to full activity which may include returning to work/school. Diet Start your diet with liquids and light foods (jello, soup, juice, toast). Then eat your usual diet if not nauseated. Treatment For Common After Affects For mild abdominal pain, bloating, or excessive gas: - Rest - Eat lightly - Lie on right side Follow-Up Information Follow-up with Dr Rene Conley as scheduled Anesthesia Information What You Should Know You have had a procedure that required some medicine to reduce anxiety and discomfort. This treatment is called moderate sedation. After receiving the treatment, you may be sleepy, but you will be able to breathe on your own. The effects of the treatment may last for several hours. Follow these instructions along with Activity/Diet recommendations noted above: * Do NOT do anything where dizziness or clumsiness would be dangerous. * Rest quietly at home today, then you can be up and about tomorrow. * Have a responsible person stay with you the rest of today. * You may have had an I.V. today. If so, you may take the dressing off later today. Recommendations Call your doctor if: * Trouble breathing * Continuous vomiting for more than 24 hours * Temperature above 101 degrees * Severe abdominal pain or bloating * Pain not relieved by pain medicine ordered * There is increased drainage or redness from any incision * A large amount of rectal bleeding greater than 2-3 tablespoons. (If you had a polyp/s removed or have hemorrhoids, a small amount of blood - from the rectum is to be expected.) * You have any unanswered questions or concerns. IN THE EVENT OF A SERIOUS EMERGENCY, GO TO THE NEAREST EMERGENCY ROOM Your discharge instructions were prepared by provider Jackson Brizuela. Patient Instructions Signature Page Brad Ta Patient (or Guardian) Signature/Date: I have read and understand the instructions given to me by my caregivers. Caregiver/RN/Doctor Signature/Date: The above-named patient and/or guardian has received patient instructions on this date. + Original Patient Signature Page (only) stays with chart. Please make copy for patient.
[2017-11-28 16:02] VITALS: BP 141/91; PULSE 43; O2SAT 95
--- NOTE | 2017-11-28 16:04 | Anesthesiology Progress Note ---
Anesthesia Post Op Note Date & Time Nov 28, 2017 at 16:04 Vital Signs Vital Signs Past 12 Hours Date Time Temp Pulse Resp B/P (MAP) Pulse Ox O2 Delivery O2 Flow Rate FiO2 11/28/17 15:46 45 18 145/91 (109) 95 Room Air 11/28/17 15:31 36.0 49 12 101/76 (84) 95 Room Air 11/28/17 14:28 36.6 50 20 115/80 (92) 96 Room Air Notes Mental Status: alert / awake / arousable, participated in evaluation Pt Amnestic to Procedure: Yes Nausea / Vomiting: adequately controlled Pain: adequately controlled Airway Patency, RR, SpO2: stable & adequate BP & HR: stable & adequate Hydration State: stable & adequate Anesthetic Complications: no major complications apparent
== END | disposition home or self-care (01) ==
LOC: C.GI 13:27
PROVIDERS: ATTEND Internal Medicine
DX: R13.10 Dysphagia, unspecified (principal); K21.9 Gastro-esophageal reflux disease without esophagitis; Z79.82 Long term (current) use of aspirin; Z79.899 Other long term (current) drug therapy

== ENCOUNTER 2019-01-13 09:51 | Inpatient (IN) ==
--- NOTE | 2018-12-19 08:29 | PAT Medication Instructions ---
Medication Instructions Date of Service December 19, 2018 Home Medications allopurinol 100 mg PO QAM multivitamin 1 tab PO QAM omeprazole 20 mg PO QPM DO NOT take the morning of surgery multivitamin 1 tab PO QAM Take morning of surgery With a small sip of water, OTHERWISE NOTHING TO EAT OR DRINK AFTER MIDNIGHT: allopurinol 100 mg PO QAM Take evening before surgery omeprazole 20 mg PO QPM Other Notes If you have any questions please call us at [phone] or [phone] or [phone] or [phone]
--- NOTE | 2018-12-19 08:39 | Anesthesiology Consultation ---
Date of Service December 19, 2018 Assessment & Plan (1) Encounter for pre-operative examination: Chart Review Chart Review: Acceptable Risk for Surgery and Patient seen in Pre Admission Testing Consults Requested none Teaching & Discussion Pre-Anesthesia Teaching/Discussion Notes: Instructed NPO after midnight before surgery, except medications with 15 cc of water. Medication instructions provided according to the PAT guidelines. History Surgery Operation Date: 01/13/19 12:30 Proposed Procedures p Left Total Knee Arthroplasty - Antonio Farrar MD Height/Weight Height: 5 ft 10 in Weight: 113.9 kg Allergies Allergy/AdvReac Type Severity Reaction Status Date / Time No Known Allergies Allergy Verified 12/17/18 15:22 Medications Home Medications Medication Instructions Recorded Confirmed Last Taken allopurinol 100 mg PO QAM 04/24/18 12/17/18 05/14/18 multivitamin 1 tab PO QAM 04/24/18 12/17/18 05/14/18 omeprazole 20 mg PO QPM 04/24/18 12/17/18 05/14/18 prednisone 5 mg PO DIRECTED 12/17/18 12/17/18 Unknown Past Medical History Medical History GERD (gastroesophageal reflux disease) Gout Hearing deficit Neuropathy BLE Osteoarthritis Poison avelino NEWBY ON PREDNISONE Exercise / Class Metabolic Activity II 4-5 Yardwork/Stairs/Walk up hill (Works at [employer]. Very active. Able to climb FOS. Denies CP or SOB with activity. ) Past Family History Family History Father Family history of diabetes mellitus Heart disease Son Family history of stomach cancer 2016 from stomach cancer Other Diabetes Past Surgical History Surgical History H/O elbow surgery Unsure what was done History of appendectomy History of carpal tunnel release left History of carpal tunnel surgery of right wrist History of colonoscopy History of tooth extraction History of umbilical hernia repair 05/13/14: MAC #4, ETT #7.5, HiLo Oral, Grade 2 View Hx of arthroscopy of right knee Hx of rotator cuff surgery RIGHT Hx of vasectomy S/P trigger finger release Right thumb Past Anesthesia History No Hx of Anesthesia Complications and No Family Hx of Anesthesia Complications History of PONV No Hx of PONV and No Hx of Motion Sickness Social History Smoking Status: Never smoker Do You Dip or Chew Tobacco: No Hx Alcohol Use: No Hx Substance Use: No substance use type: does not use Review of Systems Patient denies chest pain, shortness of breath, dyspnea on exertion, cough, wheezing, palpitations. +Joint Pain (Knee) +Acid Reflux (controlled on current medication) Physical Exam Vital Signs BP: 138/79 P: 46 R: 18 T: 98.2 SPO2: 98% on RA ENMT Thyromental Distance: > or= 3.5 Finger Breadths (3.5) Mallampati Class: II Neck normal visual inspection; neck extension not limited Respiratory normal respiratory effort Auscultation: lungs clear to auscultation bilaterally Cardiovascular Rate/Rhythm: + bradycardic Heart Sounds: no murmur Vessels: no carotid bruit Neurologic moves all extremities Psychiatric Orientation: alert and oriented x 3 Testing Laboratory Results 12/19/18 08:10 12/19/18 08:10 PT 10.7 Seconds (9.0-12.0) 12/19/18 08:10 INR 1.0 (0.9-1.1) 12/19/18 08:10 APTT 28.0 Seconds (21.0-31.0) 12/19/18 08:10 Blood Type O Positive 12/19/18 08:10 Antibody Screen NEGATIVE 12/19/18 08:10 Laboratory Tests 11/07/18 09:18 Hemoglobin A1c 6.3 H Electrocardiogram Date: 12/19/18 Findings: + SB @ (47) When compared with ECG of 04/21/18, PVCs are no longer present Chest X-Ray Date: 12/19/18 Findings: + NAD and + cardiomegaly (Mild) Stress Test Date: 07/05/14 Type: exercise Resting EF: 69% Rest HR was 55BPM. Rest BP was 168/85. Maximum HR achieved was 133bpm. Maximum HR was 84% of MPHR. Maximum BP was 183/88. Total exercise time was 10:42. Maximum exercise MET level achieved was 12.80 METS. Maximum treadmill speed was 4.20 miles per hour. Maximum treadmill elevation was 16.00% grade. Negative exercise stress for ischemia at 84% MPHR. LV becomes smaller and more vigorous with stress. Nondiagnostic stress EKG for ischemia secondary to failure to achieve 85% MPHR. However, no ischemic EKG changes at work load achieved. Frequent PVC's during stress. No stress induced chest pain. Good functional status, achieving 10:40 minutes (12.8 METS) on a standard Partha protocol.
--- NOTE | 2018-12-19 10:36 | XRay Report ---
XR chest Pre-admission PA/Lat CLINICAL HISTORY: 68 years-old Male presenting with preoperative evaluation. TECHNIQUE: PA and lateral views of the chest were obtained. COMPARISON: 07/05/2014. FINDINGS: Cardiac silhouette mildly enlarged. Lungs and pleural spaces clear. Degenerative changes of the thora cic spine. Upper abdomen normal. IMPRESSION: 1. Mild cardiomegaly. No other evidence of acute cardiopulmonary disease. Electronically signed by: Eliezer Ferrera M.D. 12/19/2018 10:34 AM
[2018-12-19 12:06] LABS: Basophils # (auto) 0.01 K/uL (0-0.2); Basophils % (auto) 0.2 %; Eosinophils # (auto) 0.07 K/uL (0-0.5); Eosinophils % (auto) 1.3 %; Hemoglobin 11.1 g/dL (14.0-18.0); Immature Granulocytes # (auto) 0.02 K/uL (0.00-0.02); Immature Granulocytes % (auto) 0.4 %; Lymphocytes # (auto) 1.44 K/uL (1.2-3.4); Lymphocytes % (auto) 27.2 %; Mean Corpuscular Hemoglobin 24.2 pg (25-34); Mean Corpuscular Hgb Conc 31.7 g/dL (32-36); Mean Corpuscular Volume 76.3 fL (80-100); Mean Platelet Volume 11.5 fL (7.4-10.4); Monocytes # (auto) 0.51 K/uL (0.11-0.59); Monocytes % (auto) 9.6 %; Neutrophils # (auto) 3.25 K/uL (1.4-6.5); Neutrophils % (auto) 61.3 %; Platelet Count 174 K/uL (130-400); RDW Coefficient of Variation 15.5 % (11.5-14.5); RDW Standard Deviation 42.9 fL (36.4-46.3); Red Blood Count 4.59 M/uL (4.7-6.1)
[2018-12-19 12:11] LABS: BUN Creatinine Ratio 17.7 (10-20); Calcium 8.6 mg/dl (8.5-10.1); Creatinine Clr Calc Pharmacy 85.9 ml/min; Est GFR (African American) 85.1; Est GFR (Non-African American) 73.4; Potassium 3.9 mmol/L (3.5-5.1)
[2018-12-19 12:15] LABS: Prothrombin Time 10.7 Seconds (9.0-12.0)
--- NOTE | 2019-01-10 18:04 | History and Physical Report ---
DATE OF ADMISSION: 01/13/2019 CHIEF COMPLAINT: Bilateral knee pain and discomfort, left side greater than right. HISTORY OF PRESENT ILLNESS: A 68-year-old gentleman referred by my partner Dr. Dominguez for surgical treatment of his knees. He has got a fairly long history of bilateral knee pain and discomfort, left side greater than right. It has gotten gradually worse over the past 5 years. It has gotten to the point where he limps pretty much all day long. The more he walks, the more it hurts, the more he limps. Pain is mostly medial, but some global pain. He has been treated with aspiration and injections which provided some temporary relief only. He now elected to proceed with more definitive treatment. He can only walk a couple blocks. PAST MEDICAL HISTORY: 1. Osteoarthritis. 2. Gastroesophageal reflux disease. 3. Hiatal hernia. 4. Mild obesity, BMI 36. PAST SURGICAL HISTORY: Previous surgeries include: 1. Appendectomy. 2. Vasectomy. 3. Herniorrhaphy. 4. Right knee scope in 2016. 5. Right rotator cuff repair. 6. Carpal tunnel release x2. ALLERGIES: None. CURRENT MEDICINES: 1. Omeprazole 10 mg a day. 2. Centrum Silver. 3. Allopurinol 100 mg a day. SOCIAL HISTORY: A 68-year-old male. He does not smoke or drink alcohol. FAMILY HISTORY: Noncontributory. REVIEW OF SYSTEMS: Negative for diabetes, neurologic problem, vascular problem, bleeding disorders. Denies any chest pain or shortness of breath. No history of DVT or PE. No known bleeding problems. PHYSICAL EXAMINATION: GENERAL: Reveals a healthy, pleasant, middle-aged male. Looks to be in pretty good health. Looks a little younger than stated age. HEENT: Benign. NECK: Supple. No lymphadenopathy. LUNGS: Clear to auscultation. HEART: Regular rate and rhythm. ABDOMEN: Soft, nontender, nondistended. EXTREMITIES: Grossly neurovascularly intact except as follows. Examination of the left knee reveals the patient walks with markedly antalgic gait. He really limps on the left side. He has got varus alignment to his knee. Moderate to large knee joint effusion. Range of motion 0-125. There is no instability. No pain with hip motion. X-RAYS: X-rays of left knee reviewed. It shows mildly advanced medial compartment arthritis. He has got near complete loss of his medial joint space. He has got significant knee effusion on x-ray. MRI: MRI is reviewed. Shows marked bone marrow edema in the medial femoral condyle and medial tibial plateau especially. He has got a knee effusion. He has got significant patellofemoral changes as well. ASSESSMENT: A 68-year-old male with history of right knee arthroscopy in the past with advanced left knee degenerative joint disease. His MRI findings are pretty impressive with his significant bone marrow edema. He has failed conservative treatment and would like to proceed with surgical treatment. PLAN: We will take him to the Operating Room and do a left total knee replacement. The risks and benefits of this procedure were explained to the patient including but not limited to DVT, PE, , infection, neurological injury, vascular injury, bleeding problem, pain, limited range of motion, stiffness, failure to relieve symptoms, incomplete relief of symptoms, need for further surgery in future, fracture, leg length inequality, nerve palsy, etc. The patient understands and desires to proceed. Informed consent was obtained. As far as discharge plans, he is planning to be discharged home using [facility].
--- NOTE | 2019-01-12 11:30 | Anesthesiology Consultation ---
Date of Service January 12, 2019 PCP nievesal (01/12/19): "Cleared for surgery from a primary care standpoint." History Surgery Operation Date: 01/13/19 12:30 Proposed Procedures p Left Total Knee Arthroplasty - Antonio Farrar MD Height/Weight Height: 5 ft 10 in Weight: 113.9 kg Allergies Allergy/AdvReac Type Severity Reaction Status Date / Time No Known Allergies Allergy Verified 01/12/19 09:15 Medications Home Medications Medication Instructions Recorded Confirmed Last Taken allopurinol 100 mg PO QAM 04/24/18 01/12/19 01/06/19 multivitamin 1 tab PO QAM 04/24/18 01/12/19 01/06/19 omeprazole 20 mg PO QPM 04/24/18 01/12/19 01/06/19 ferrous sulfate [Iron (ferrous 325 mg PO QAM 12/30/18 01/12/19 01/06/19 sulfate)] naproxen sodium [Aleve] 220 mg PO BID 12/30/18 01/12/19 01/05/19 Social History Smoking Status: Never smoker Do You Dip or Chew Tobacco: No Hx Alcohol Use: Yes Alcohol type: beer, wine and hard liquor alcohol intake frequency: other Hx Substance Use: No substance use type: does not use Testing Laboratory Results 12/19/18 08:10 12/19/18 08:10 PT 10.7 Seconds (9.0-12.0) 12/19/18 08:10 INR 1.0 (0.9-1.1) 12/19/18 08:10 APTT 28.0 Seconds (21.0-31.0) 12/19/18 08:10 Blood Type O Positive 12/19/18 08:10 Antibody Screen NEGATIVE 12/19/18 08:10
[~2019-01-13 09:51] MED LIST changes: +ACETAMINOPHEN 500 MG TAB PO SCH; -ALL100 PO; -ASPI81TA28 PO; +BUPIVACAINE 0.5 % 5 MG/1 ML PF 10ML VIAL ONE; +BUPIVACAINE LIPOSOME/PF 266 MG, BUPIVACAINE/EPINEPHRINE 50 ML, SODIUM CHLORIDE 0.9% 30 ... INFIL SCH; +BUPIVACAINE/EPINEPHRINE 0.25% 1:200,000 30 ML VIAL ONE; +CEFAZOLIN 2000MG 2,000 MG/15 ML SYR IV SCH; +DEXAMETHASONE SOD INJ 4 MG/ML VIAL ONE; +FAMOTIDINE 20 MG TAB PO SCH; -FENTANYL CITRATE INJ 50 MCG/1 ML 2 ML VIAL ONE; +GABAPENTIN 300 MG CAP PO SCH; -GLUCTAB7 PO; -LIDOCAINE HCL 2% 2 ML VIAL (20MG/ML) ONE; +LR 500ML BOLUS, THEN 15ML/HR IV SCH; +LR 60ML/HR IV SCH; +METOCLOPRAMIDE HCL 10 MG TABLET PO SCH; -MULT-506 PO; -OMEP-334 PO; -PROPOFOL IV EMULSION 10 MG/ML 20 ML VIAL ONE; +SCOPOLAMINE 1.5 MG TDSY TD SCH; +TRANEXAMIC ACID 1,000 MG **IV Intra-op IV SCH
--- NOTE | 2019-01-13 11:18 | History & Physical Bridge Note ---
Date of Service January 13, 2019 History & Physical Bridge Note I have examined the patient, reviewed the History & Physical and in the interval since the performance of the History & Physical I have noted the following changes of clinical significance: no changes noted
[2019-01-13] MEDS ORDERED: PROPOFOL IV EMULSION 10 MG/ML 20 ML VIAL IV ONE ×2 (12:02→14:37)
[2019-01-13] MEDS ORDERED: MIDAZOLAM HCL 1 MG/ML 2ML VIAL ONE ×2 (12:02→13:47)
[2019-01-13] MEDS ORDERED: fentaNYL citrate 100 MCG/2 ML VIAL ONE (12:03)
[2019-01-13] MEDS ORDERED: ePHEDrine sulfate 50 MG/ML AMP IV PRN (12:51)
[2019-01-13] MEDS ORDERED: ONDANSETRON INJ 2 MG/ML 2 ML VIAL IV PRN ×2 (12:51→16:56)
[2019-01-13] MEDS ORDERED: fentaNYL citrate 100 MCG/2 ML VIAL IV PRN (12:51)
[2019-01-13] MEDS ORDERED: ATROPINE SULFATE 0.1 MG/ML 10ML SYR IV PRN (12:51)
[2019-01-13] MEDS ORDERED: SODIUM CHLORIDE 0.9% PF 50 ML VIAL ONE (13:23)
[2019-01-13] MEDS ORDERED: BUPIVACAINE 0.25% 30 ML VIAL ONE (13:24)
[2019-01-13] MEDS ORDERED: BACITRACIN INJ 50,000 UNIT VIAL ONE (13:24)
[2019-01-13] MEDS ORDERED: EPINEPHrine INJ 1 MG/ML AMP ONE (13:24)
[2019-01-13] MEDS ORDERED: BUPIVACAINE LIPOSOME 1.3% 266 MG/20 ML VIAL ONE (13:24)
--- NOTE | 2019-01-13 15:30 | Post Operative Brief Note ---
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 Specimens Specimen Description: A. Left Knee Bone and Tissue Drains Alvarez Catheter (A 16 Bah[place]ian alvarez catheter was attempted to be inserted by VÍCTOR Nolan, resistance met at uretheral opening, a 12 [place]ian alvarez was then inserted without difficulty, clear yellow urine obtained, output to be monitored by Anesthesia.) Anesthesia Type Spinal MAC Complications none Disposition Accompanied Patient To Recovery: No
--- NOTE | 2019-01-13 16:00 | XRay Report ---
XR knee LT 2V routine CLINICAL HISTORY: Surgical Post Op COMPARISON: None. DISCUSSION: Anatomic alignment posttotal left knee arthroplasty. Could contact between prosthetic and underlying bone. Expected soft tissue postoperative change IMPRESSION: Anatomic alignment posttotal left knee arthroplasty. The above report was generated using voice recognition software. It may contain grammatical, syntax or spelling errors. Electronically signed by: Pedro Luis Colby M.D. 01/13/2019 3:59 PM
--- NOTE | 2019-01-13 16:36 | Anesthesiology Progress Note ---
Date of Service January 13, 2019 Anesthesia Post Procedure Vital Signs Vital Signs: Temp Pulse Pulse Pulse Resp BP BP 01/13/19 16:16 36.4 C L 01/13/19 16:15 50 L 14 106/73 01/13/19 16:11 56 L 14 01/13/19 16:10 48 L 14 116/75 01/13/19 16:06 69 15 01/13/19 16:05 49 L 13 118/80 01/13/19 16:01 55 L 15 01/13/19 16:00 50 L 13 113/76 01/13/19 15:56 47 L 14 01/13/19 15:55 63 13 112/76 01/13/19 15:51 57 L 14 01/13/19 15:50 51 L 14 113/70 01/13/19 15:46 75 13 01/13/19 15:45 55 L 14 115/78 01/13/19 15:41 87 17 01/13/19 15:40 52 L 12 115/71 01/13/19 15:38 78 12 01/13/19 15:37 36.2 C L 67 67 15 114/68 114/68 01/13/19 10:29 36.8 C 57 L 16 147/98 H Pulse Ox 01/13/19 16:16 98 01/13/19 16:15 99 01/13/19 16:11 99 01/13/19 16:10 98 01/13/19 16:06 99 01/13/19 16:05 99 01/13/19 16:01 97 01/13/19 16:00 98 01/13/19 15:56 94 01/13/19 15:55 98 01/13/19 15:51 98 01/13/19 15:50 98 01/13/19 15:46 100 01/13/19 15:45 100 01/13/19 15:41 100 01/13/19 15:40 100 01/13/19 15:38 100 01/13/19 15:37 100 01/13/19 10:29 97 Pain Intensity Left Knee: Pain Intensity: 0 Transfer of Care Handoff Completed per policy Notes Mental Status: alert / awake / arousable and participated in evaluation Patient Amnestic to Procedure: Yes Nausea / Vomiting: adequately controlled Pain: adequately controlled Airway Patency, RR, SpO2: stable & adequate BP & HR: stable & adequate Hydration State: stable & adequate Neuraxial Anesthesia: was administered and sensory block is resolving Anesthetic Complications: no major complications apparent
[2019-01-13] MEDS ORDERED: MAGNESIUM HYDROXIDE SUSP 30 ML UDC PO PRN (16:56)
[2019-01-13] MEDS ORDERED: ALUMINUM/MAGNESIUM SUSP 30 ML UDC PO PRN (16:56)
[2019-01-13] MEDS ORDERED: TAMSULOSIN HCL 0.4 MG CAP PO PRN (16:56)
[2019-01-13] MEDS ORDERED: METOCLOPRAMIDE HCL INJ 5 MG/ML 2 ML VIAL IV PRN (16:56)
[2019-01-13] MEDS ORDERED: HYDROmorphone INJ 0.5 MG/0.5 ML SYR IV PRN (16:56)
[2019-01-13] MEDS ORDERED: SODIUM CHLORIDE 0.9% 1000ML 1,000 ML IV SCH (16:56)
[2019-01-13] MEDS ORDERED: OXYCODONE HCL IR 5 MG TAB (IMMEDIATE RELEASE) PO PRN (16:56)
[2019-01-13] MEDS ORDERED: NALOXONE HCL 0.4 MG/1 ML VIAL/CARP IV PRN (16:56)
[2019-01-13] MEDS ORDERED: BISACODYL 10 MG SUPP PR PRN (16:56)
[2019-01-13] MEDS: CHECK SCOPOLAMINE PATCH PLACEMENT SCH ×2 (17:00→23:59)
[2019-01-13] MEDS: FERROUS GLUCONATE 324 MG TAB PO SCH (18:00)
[2019-01-13] MEDS: ASCORBIC ACID 500 MG TAB PO SCH (18:00)
[2019-01-13] MEDS: KETOROLAC TROMETHAMINE 15 MG/ML VIAL IV SCH ×2 (18:11→23:59)
[2019-01-13] MEDS: CEFAZOLIN 2000MG 2,000 MG/15 ML SYR IV SCH (20:31)
[2019-01-13] MEDS: TAPENTADOL HCL ER 50 MG TABCR PO SCH (20:31)
[2019-01-13] MEDS: DOCUSATE SODIUM 100 MG CAP PO SCH (20:33)
[2019-01-13] MEDS: ASPIRIN 81 MG ECTAB PO SCH (20:33)
[2019-01-13] MEDS: SENNA 8.6 MG TAB PO SCH (20:34)
[2019-01-13] MEDS: PANTOprazole 40 MG TAB PO SCH (20:34)
[2019-01-13] MEDS ORDERED: TRANEXAMIC ACID 1,000 MG in 0.9 % SODIUM CHLORIDE 100 ML IV SCH (21:31)
[2019-01-13] MEDS: ACETAMINOPHEN 500 MG TAB PO SCH (22:02)
--- NOTE | 2019-01-13 22:15 | Operative Report ---
DATE OF OPERATION: 01/13/2019 SURGEON: Antonio Farrar MD SPECIAL EDUCATION [facility] AIDE: VÍCTOR Pruitt PREOPERATIVE DIAGNOSIS: Left knee degenerative joint disease. POSTOPERATIVE DIAGNOSES: Left knee degenerative joint disease with likely avascular necrosis, medial femoral condyle. PROCEDURE PERFORMED: Left cemented posterior stabilized total knee arthroplasty. COMPLICATIONS: None. ESTIMATED BLOOD LOSS: 50 mL. FLUID REPLACEMENT: 1500 mL crystalloid fluid replacement. ANESTHESIA: Spinal with adductor canal block. DRAINS: None. SPECIMENS: Left knee sent for pathology. OPERATIVE INDICATIONS: The patient is a 68-year-old gentleman who has had about a 5-year history of gradually progressive increasing left knee pain and discomfort and recurrent effusions of his knees. He has been treated extensively by my partner Dr. Dominguez. This became less successful over time. X-rays show progressive loss of his medial joint space. He had an MRI which showed a large knee joint effusion and significant bone marrow edema of the medial femoral condyle and medial tibial plateau. The patient failed conservative treatment and elected to proceed with operative treatment. OPERATIVE FINDINGS: Operative findings revealed advanced left knee DJD. Grade 4 changes of the medial femoral condyle with appearance suggestive of avascular necrosis. He has some focal grade 4 changes of the tibial plateau. He had grade 4 changes in the patellofemoral joint. The lateral compartment was pretty well preserved. He had a large knee joint effusion. OPERATIVE IMPLANTS: Operative implants consisted of: 1. A Biomet Vanguard size 67.5 left posterior stabilized femoral component. 2. A Biomet size 75 tibial tray. 3. A 10 mm posterior stabilized polyethylene insert. 4. A 31 x 8 all poly patella. OPERATIVE PROCEDURE: The patient was taken to the operating room, identified and placed on the operating table in supine position. All contact areas were appropriately padded. IV antibiotics were provided by the anesthesia team. A spinal anesthetic and adductor canal block had been provided in the holding area. A Bonilla catheter was placed in sterile fashion. The left thigh tourniquet was then placed and the left lower extremity was then prepped and draped in the usual sterile fashion. The left leg was elevated and exsanguinated with Esmarch and tourniquet was placed at 300 mmHg. An anterior approach to the left knee was then performed through a longitudinal incision centered oval the patella. Sharp dissection was carried out through the subcutaneous tissues down to the level of the extensor mechanism. A medial parapatellar arthrotomy incision was made. Subperiosteal dissection was carried out medially. The fat pad was resected from beneath the patellar tendon. The lateral patellofemoral ligament was released. The patella was everted and knee was flexed. The osteophytes were taken off the distal femur. The ACL and PCL were then released from the distal femur and the tibia subluxated anteriorly. The external tibial alignment jig was then placed in the anterior face of the tibia and adjusted 16 mm medially. Proximal tibial cut was made to remove about a millimeter or 2 of bone from the most deficient aspect of the medial tibial plateau. Some osteophytes were taken off medial and posteromedially. Tibia sized to a size 75. Attention was then drawn to the femur. The distal femur was entered with a sharp drill bit. Intramedullary canal was suctioned. A left 6-degree valgus cutting guide was placed. Distal femoral cutting block was pinned in place. Distal femoral cut was made to take an additional 3 mm of bone off the distal femur. The femur was then sized to a size 67.5. We downsized this about half a size. The AP cutting block was pinned parallel to the epicondylar axis, which was 4 degrees of external rotation. The anterior cut, anterior chamfer, posterior cut, and posterior chamfer cuts were made. Box cutting guide was placed and adjusted slightly lateral and the box cut was made. The knee was flexed. The remnants of medial and lateral menisci were excised. The osteophytes were taken off the posterior aspect of the femur. A trial femoral component was placed. Tibial tray was then pinned in maximum external rotation, and the drill and stem punch were used to create defect in proximal tibia for the tibial tray. The knee was then trialed and the 10 mm insert fit most appropriately. Attention was then drawn to the patella. The patella was cleaned of all soft tissues. Patella thickness measured 22 mm in thickness and it was cut down to 13. It was sized to a size 31 patella. I did downsize this slightly, tried to optimize patellar tracking. The lug holes were drilled for the patella component and the lateral osteophyte was removed. Patella button was placed and the knee tracked nicely with no thumbs test. Attention was then drawn toward placement of permanent components. All trial components were removed. A bone plug was placed in the distal femur to limit blood loss. A double batch of Palacos G cement was mixed. A Biomet Vanguard size 67.5 left posterior stabilized femoral component, size 75 tibial tray, a 10 mm posterior stabilized polyethylene insert, and a 31 x 8 all poly then cemented in place. Knee was brought out into full extension until cement hardened. A final cement check was then performed. Pericapsular tissues were injected with a total of 100 mL of a combination of 20 mL of Exparel, 30 mL normal saline, 50 mL of 0.25% Marcaine with epinephrine. The patient did receive 1 gram of tranexamic acid. The tourniquet was then let down for a final tourniquet time of 60 minutes. Hemostasis was assured with use of electrocautery. The extensor mechanism was then closed with a combination of #1 PDS suture and #1 Vicryl suture in a [id number] fashion. Extensor mechanism was checked and found to be intact. The subcutaneous tissues were then closed with 2-0 Dexon suture in a buried interrupted fashion. Skin was closed with skin gabriel. Leg was then cleaned and dried and a sterile dressing of Xeroform, 4 x 4, sterile cast padding and Abhinav bandage were applied. The patient then transferred to the recovery room in stable condition. The patient tolerated the procedure well with no complications. All needle and sponge counts were correct at the end of the operation. I attest to the content of the Intraoperative Record and any orders documented therein. Any exception s are noted below.
[2019-01-14] MEDS: CEFAZOLIN 2000MG 2,000 MG/15 ML SYR IV SCH (03:54)
[2019-01-14] MEDS: KETOROLAC TROMETHAMINE 15 MG/ML VIAL IV SCH ×4 (05:29→23:38)
[2019-01-14] MEDS: ACETAMINOPHEN 500 MG TAB PO SCH ×3 (05:29→20:27)
[2019-01-14 06:12] LABS: Hematocrit (blood only) 33.8 % (42-52); Hemoglobin 10.6 g/dL (14.0-18.0); Mean Corpuscular Hemoglobin 24.1 pg (25-34); Mean Corpuscular Hgb Conc 31.4 g/dL (32-36); Mean Platelet Volume 10.1 fL (7.4-10.4); Platelet Count 184 K/uL (130-400); RDW Coefficient of Variation 16.4 % (11.5-14.5); RDW Standard Deviation 45.9 fL (36.4-46.3); Red Blood Count 4.39 M/uL (4.7-6.1); White Blood Count 6.87 K/uL (4.8-10.8)
[2019-01-14 06:46] LABS: BUN Creatinine Ratio 12.2 (10-20); Calcium 8.5 mg/dl (8.5-10.1); Creatinine Clr Calc Pharmacy 84.5 ml/min; Est GFR (African American) 84.1; Est GFR (Non-African American) 72.6
[2019-01-14] MEDS: ASCORBIC ACID 500 MG TAB PO SCH ×2 (08:33→18:10)
[2019-01-14] MEDS: MULTIVITAMIN TAB PO SCH (08:33)
[2019-01-14] MEDS: ALLOPURINOL 100 MG TAB PO SCH (08:33)
[2019-01-14] MEDS: ASPIRIN 81 MG ECTAB PO SCH ×2 (08:33→20:27)
[2019-01-14] MEDS: FERROUS GLUCONATE 324 MG TAB PO SCH ×2 (08:33→18:10)
[2019-01-14] MEDS: DOCUSATE SODIUM 100 MG CAP PO SCH ×2 (08:34→20:27)
[2019-01-14] MEDS: TAPENTADOL HCL ER 50 MG TABCR PO SCH ×2 (08:37→20:34)
[2019-01-14] MEDS ORDERED: MULTIVITAMIN TAB PO SCH (09:00)
--- NOTE | 2019-01-14 11:09 | Progress Note ---
DATE: 01/14/2019 SUBJECTIVE: A 68-year-old gentleman postop day 1 from a left knee replacement. He is doing pretty well. Had a pretty good night. Pain has been controlled. No chest pain or shortness of breath. Not feeling dizzy or lightheaded. OBJECTIVE: VITAL SIGNS: Temperature is 36.4. Vital signs stable. GENERAL: Reveals a pleasant, middle-aged male. He is sitting on bed, looks pretty comfortable. LUNGS: Clear to auscultation. HEART: Regular rate and rhythm. ABDOMEN: Soft, nontender, nondistended. EXTREMITIES: Grossly neurovascularly intact except as follows: Examination of the left lower extremity reveals the dressing to be clean, dry, and intact. He can dorsiflex and plantarflex his foot appropriately. He is neurologically intact. LABORATORY DATA: Hemoglobin is 10.6. Hematocrit 33.8. Electrolytes are stable. ASSESSMENT: A 68-year-old gentleman postop day 1 from a left knee replacement, doing pretty well. Pain is controlled. He is neurologically intact. He does have some underlying chronic anemia but he is asymptomatic. PLAN: 1. DVT prophylaxis including thigh-high TEDs, SCDs, and aspirin twice a day. 2. PT/OT. Weight bear as tolerated. Left total knee protocol. 3. Pain control, doing well with current pain regimen. 4. Anemia. Currently asymptomatic. He does have some underlying chronic anemia. He is on iron. Will continue iron supplementation. 5. Disposition: Plan to discharge to home with some home health when medically stable and getting around okay. We will see how he does in therapy today.
--- NOTE | 2019-01-14 12:14 | Anesthesiology Progress Note ---
Date of Service January 14, 2019 Anesthesia Post Procedure Vital Signs Vital Signs: Temp Pulse Pulse Pulse Resp BP BP 01/14/19 08:30 36.4 C L 61 16 129/66 01/14/19 04:30 36.5 C 55 L 16 130/79 01/13/19 22:54 36.7 C 51 L 16 125/78 01/13/19 19:56 36.7 C 53 L 16 199/78 H 01/13/19 18:29 36.5 C 59 L 18 132/80 01/13/19 17:37 36.4 C L 72 18 152/98 H 01/13/19 17:08 36.5 C 49 L 16 132/84 01/13/19 16:30 36.4 C L 51 L 16 120/78 01/13/19 16:16 36.4 C L 01/13/19 16:15 50 L 14 106/73 01/13/19 16:11 56 L 14 01/13/19 16:10 48 L 14 116/75 01/13/19 16:06 69 15 01/13/19 16:05 49 L 13 118/80 01/13/19 16:01 55 L 15 01/13/19 16:00 50 L 13 113/76 01/13/19 15:56 47 L 14 01/13/19 15:55 63 13 112/76 01/13/19 15:51 57 L 14 01/13/19 15:50 51 L 14 113/70 01/13/19 15:46 75 13 01/13/19 15:45 55 L 14 115/78 01/13/19 15:41 87 17 01/13/19 15:40 52 L 12 115/71 01/13/19 15:38 78 12 01/13/19 15:37 36.2 C L 67 67 15 114/68 114/68 Pulse Ox 01/14/19 08:30 97 01/14/19 04:30 95 01/13/19 22:54 97 01/13/19 19:56 98 01/13/19 18:29 99 01/13/19 17:37 100 01/13/19 17:08 100 01/13/19 16:30 95 01/13/19 16:16 98 01/13/19 16:15 99 01/13/19 16:11 99 01/13/19 16:10 98 01/13/19 16:06 99 01/13/19 16:05 99 01/13/19 16:01 97 01/13/19 16:00 98 01/13/19 15:56 94 01/13/19 15:55 98 01/13/19 15:51 98 01/13/19 15:50 98 01/13/19 15:46 100 01/13/19 15:45 100 01/13/19 15:41 100 01/13/19 15:40 100 01/13/19 15:38 100 01/13/19 15:37 100 Pain Intensity Left Knee: Pain Intensity: 2 Notes Mental Status: alert / awake / arousable and participated in evaluation Nausea / Vomiting: adequately controlled Pain: adequately controlled Airway Patency, RR, SpO2: stable & adequate BP & HR: stable & adequate Hydration State: stable & adequate Neuraxial Anesthesia: sensory block resolved
[2019-01-14] MEDS: PANTOprazole 40 MG TAB PO SCH (20:27)
[2019-01-14] MEDS: SENNA 8.6 MG TAB PO SCH (20:27)
[2019-01-15] MEDS: KETOROLAC TROMETHAMINE 15 MG/ML VIAL IV SCH (05:31)
[2019-01-15] MEDS: ACETAMINOPHEN 500 MG TAB PO SCH (05:31)
[2019-01-15] MEDS: TAPENTADOL HCL ER 50 MG TABCR PO SCH (07:30)
[2019-01-15] MEDS: FERROUS GLUCONATE 324 MG TAB PO SCH (07:30)
[2019-01-15] MEDS: MULTIVITAMIN TAB PO SCH (07:30)
[2019-01-15] MEDS: DOCUSATE SODIUM 100 MG CAP PO SCH (07:30)
[2019-01-15] MEDS: ALLOPURINOL 100 MG TAB PO SCH (07:31)
[2019-01-15] MEDS: ASCORBIC ACID 500 MG TAB PO SCH (07:31)
[2019-01-15] MEDS: ASPIRIN 81 MG ECTAB PO SCH (07:31)
--- NOTE | 2019-01-15 07:40 | Progress Note ---
DATE: 01/15/2019 SUBJECTIVE: A 68-year-old gentleman postop day 2 from a left knee replacement. He is doing well. Pain is controlled. No chest pain or shortness of breath. Not feeling dizzy or lightheaded. OBJECTIVE: VITAL SIGNS: Temperature 37.0. Vital signs stable. GENERAL: Shows a pleasant, middle-aged male. He is sitting up at his bedside chair, looks quite comfortable. EXTREMITIES: Examination of the left leg reveals the leg to be well aligned. Some moderate swelling. No significant drainage. Calf is soft and supple. He is neurologically intact. ASSESSMENT: A 68-year-old gentleman postoperative day 2 from left knee replacement, doing pretty well. His pain is controlled. He is neurologically intact. PLAN: 1. DVT prophylaxis including thigh-high TEDs, SCDs, and aspirin twice a day. 2. PT/OT. Weight bear as tolerated. Left total knee protocol. 3. Pain control, doing well with current pain regimen. 4. Disposition: Plan to discharge to home with some home health later today.
--- NOTE | 2019-01-21 16:30 | Discharge Summary ---
ADMITTING PHYSICIAN AND SURGEON: Dr. Antonio Farrar. ADMITTING DIAGNOSIS: Left knee degenerative joint disease. SURGERY PERFORMED: Left total knee arthroplasty. SECONDARY DIAGNOSES: Osteoarthritis, gastroesophageal reflux disease, hiatal hernia, mild obesity. CONSULTS: None obtained. HISTORY AND PHYSICAL EXAMINATION: Well documented in the patient's chart. HOSPITAL COURSE: The patient was admitted on 01/13/2019 underwent total knee arthroplasty, tolerated the procedure well. There were no complications. He was transferred to the PACU postoperatively and later to the orthopedic for further care. He was given Ancef for antibiotic prophylaxis, RALF stockings, SCDs and aspirin for DVT prophylaxis. Hemoglobin, hematocrit and vital signs were monitored during his hospital stay and remained stable. He had some chronic anemia, did not require any blood transfusions. There were no complications during his hospital stay. By postoperative day 2 he was tolerating a regular diet, pain was controlled with oral pain medicine. He was participating in physical therapy. Postop day 2 he was discharged home, set up with home health services, given printed discharge instructions as well as new prescriptions for extra strength Tylenol, aspirin, and oxycodone. Continue home medicines. Continue physical therapy, weightbearing as tolerated, RALF stockings. Follow up approximately 2 weeks postop or sooner if there are any problems or concerns.
== END 2019-01-15 13:30 | disposition home health service (06) | DRG 470 ==
LOC: ASU 09:51 → 3E 15:34

== ENCOUNTER 2020-09-17 02:07 | Observation (INO) ==
--- NOTE | 2020-09-17 02:42 | Emergency Department Note ---
Impression & Plan Small bowel obstruction ED Provider Note NAME: SHON ALMENDAREZ AGE: 69 SEX: M ARRIVES VIA: Walk-In INFORMANT: Patient and his ED PROVIDER(S): Leena Hinds DO CHIEF COMPLAINT: Mid abdominal pain PLAN: Disposition: [facility] Condition: Stable MEDICAL DECISION MAKING: This is a 69-year-old male patient presents to the emergency department with a mid abdominal pain nausea and vomiting. Patient had exquisite tenderness with palpation just above the umbilicus with a known history of abdominal wall hernia. Patient received IV fluids, IV Zofran and IV analgesia. CT scan showed evidence of a small bowel obstruction along with a fat-containing ventral hernia. The hernia does not result in the small bowel obstruction. An NG tube was placed. [facility] for [facility]. Triage Nursing notes reviewed and agree with them. Additional history obtained from the patient's is at the bedside Prior medical records reviewed Vital Signs: reviewed and remarkable for hypertension bradycardia Differential diagnosis: Incarcerated abdominal wall hernia, pancreatitis, small bowel obstruction ER treatment provided: IV normal saline solution IV Zofran IV Dilaudid Nasogastric tube Diagnostics interpreted by me: ECG: Normal sinus rhythm at a rate of 93 with PVCs. There are no ST segment elevation and no signs of ischemia. Cardiac Monitoring: Sinus bradycardia at 57 Laboratory studies: See below Imaging studies: As per stat rad CT abdomen and pelvis with contrast: Small bowel obstruction. Transition point within the right mid abdomen. Distention up to 4 cm. No pneumatosis, portal venous gas, or free air. Colonic diverticulosis. Small fat-containing ventral hernia. Mild mucosal thickening in the distal esophagus. Potentially esophagitis. HPI: 69/M arrives for evaluation of mid abdominal pain. The patient states that he ate a fairly large dinner and developed mid abdominal pain around 8-9 PM. He then became nauseated and vomited. Patient noted that his abdominal pain was coming in waves and when it was present at lasted approximately 15 seconds. His explains that he took some Pepto-Bismol to try to relieve the symptoms but got no relief. He turned pale in color and she believes he had a syncopal event in the car on the way here. He denies ever having pain like this in the past. The patient has had 1 previous abdominal surgery for an abdominal wall hernia. He denies any urinary symptoms or previous history of constipation or diarrhea. ROS: See above HPI for pertinent positives & negatives. A total of 10 systems reviewed and were otherwise negative. PAST MEDICAL HISTORY:See Below PAST SURGICAL HISTORY:See Below FAMILY HISTORY:See Below SOCIAL HISTORY:See Below HOME MEDICATIONS:See list ALLERGIES:None VITALS:See Below PHYSICAL EXAMINATION: HEENT: Head - normocephalic and atraumatic Pupils are equal, round, and reacti ve to light. Extraocular eye muscles are intact, and sclera are anicteric. Nose - moist nasal mucosa without discharge. Mouth - moist buccal mucosa. Oropharynx is nonerythematous and there is no tonsillar exudate or edema noted. Neck: Supple; no cervical lymphadenopathy or JVD Heart: Bradycardic rate and rhythm. There is a normal S1 and S2 with no murmurs, clicks, or gallops appreciated. Lungs: Clear to auscultation bilaterally with no wheezes, rales, or rhonchi. Abdomen: Soft, moderately tender just above the umbilicus over an abdominal wall hernia nondistended, with good bowel sounds. There are no palpable pulsatile masses or hepatosplenomegaly. There is no guarding, rigidity, or rebound noted. Extremities: No evidence of cyanosis, clubbing, or edema. There are easily palpable peripheral pulses. Skin: warm and dry with good turgor and no rashes. ED COURSE: Times/Reassessments: 0220: The patient was evaluated in room A3. A complete history and physical was performed. An order was placed for continuous cardiac monitoring. The patient was in sinus bradycardia at a rate of 57. A twelve-lead EKG was obtained as described above. An IV lock was initiated and labs were drawn as above. Patient declined wanting anything for pain or nausea at this time. The patient will go for CT scan of the abdomen/pelvis. The patient began to have increasing abdominal pain. He was given 1 mg of IV Dilaudid and 4 mg of IV Zofran. The patient was started on IV normal saline drip and kept n.p.o. CT scan revealed evidence of a small bowel obstruction. I reviewed the results with the patient and his . The patient had a nasogastric tube placed. I discussed the case with the [facility] hospitalist and they will evaluate for further management. Leena Hinds DO Past Med/Surg History Medical History (Updated 09/17/20 @ 08:19 by Leena Hinds DO) Anemia GERD (gastroesophageal reflux disease) Gout Hearing deficit Neuropathy BLE Osteoarthritis Surgical History H/O elbow surgery Unsure what was done History of appendectomy History of carpal tunnel release left History of carpal tunnel surgery of right wrist History of colonoscopy (~01/07/19) repeat in 10 years History of esophagogastroduodenoscopy (EGD) (~11/28/17) History of tooth extraction History of total left knee replacement History of umbilical hernia repair 05/13/14: MAC #4, ETT #7.5, HiLo Oral, Grade 2 View Hx of arthroscopy of right knee (~01/13/19) Hx of rotator cuff surgery RIGHT Hx of vasectomy S/P trigger finger release Right thumb Family History Father Family history of diabetes mellitus Heart disease Son Family history of stomach cancer 2017 from stomach cancer Other No family history of adverse response to anesthesia Social History Smoking Status: Never smoker Second Hand Exposure: No; Hx Alcohol Use: No Hx Substance Use: No Preferred Language: Thai Communication Ability: Effective Superintendent Drilling And Production Required: No Beliefs That Will Affect Care: None marital status: Current Living Situation: Spouse current occupational status: retired current occupation: previoulsy worked at [employer] for 39 years Other Information That Helps Us Care for You: No Feels Safe at Home: Yes Safety Concerns: Feels Safe At This Time Seatbelt Use: always Assistive Devices: Glasses and Hearing Aid - Left Allergies Allergies Allergy/AdvReac Type Severity Reaction Status Date / Time No Known Allergies Allergy Verified 09/17/20 02:40 Home Meds Home Medications Medication Instructions Recorded Confirmed multivitamin 1 tab PO QAM 04/24/18 09/17/20 alpha lipoic acid 200 mg PO TID 09/17/20 09/17/20 Previous Rx's Medication Instructions Recorded gabapentin 300 mg capsule 300 mg PO TID #90 cap 08/04/20 allopurinol 100 mg tablet 100 mg PO DAILY #90 tab 08/09/20 omeprazole 20 mg capsule,delayed 20 mg PO DAILY #90 cap 08/11/20 release Results & Data (ED) Vital Signs Vital Signs - 24 hr 09/17/20 02:11 09/17/20 02:21 09/17/20 02:30 Temperature 35.4 C L Temperature Source Temporal Artery Scan Pulse Rate 57 L 57 L 55 L Pulse Rate from SpO2 Sensor 55 L 55 L Respiratory Rate 18 19 18 Respiratory Depth Normal Blood Pressure 142/103 H 148/97 H 140/93 Blood Pressure Mean 116 114 108 Pulse Oximetry 97 94 93 Oxygen Delivery Method Room Air Oxygen Flow Rate Sepsis Recent Fever Within 48 Hours No Sepsis New/Unexplained Change in Mental Status N/A Sepsis Action Taken by Nursing No Action Required 09/17/20 02:36 09/17/20 03:00 09/17/20 03:30 Temperature Temperature Source Pulse Rate 112 H 108 H Pulse Rate from SpO2 Sensor 105 H Respiratory Rate 18 15 15 Respiratory Depth Blood Pressure 156/108 H 137/111 H Blood Pressure Mean 124 119 Pulse Oximetry 92 97 Oxygen Delivery Method Room Air Oxygen Flow Rate 3 Sepsis Recent Fever Within 48 Hours Sepsis New/Unexplained Change in Mental Status Sepsis Action Taken by Nursing 09/17/20 04:00 09/17/20 04:30 09/17/20 05:00 Temperature Temperature Source Pulse Rate 48 L 46 L 87 Pulse Rate from SpO2 Sensor 48 L 83 88 Respiratory Rate 12 15 22 Respiratory Depth Blood Pressure 123/83 118/77 126/93 Blood Pressure Mean 96 90 104 Pulse Oximetry 98 96 92 Oxygen Delivery Method Oxygen Flow Rate Sepsis Recent Fever Within 48 Hours Sepsis New/Unexplained Change in Mental Status Sepsis Action Taken by Nursing 09/17/20 05:30 Temperature Temperature Source Pulse Rate 54 L Pulse Rate from SpO2 Sensor Respiratory Rate 14 Respiratory Depth Blood Pressure 127/83 Blood Pressure Mean 97 Pulse Oximetry 94 Oxygen Delivery Method Oxygen Flow Rate Sepsis Recent Fever Within 48 Hours Sepsis New/Unexplained Change in Mental Status Sepsis Action Taken by Nursing Laboratory Data Result diagrams: 09/17/20 02:30 09/17/20 02:30 Lab Results 09/17/20 09/17/20 09/17/20 Range/Units 02:30 02:30 05:35 WBC 6.78 (4.8-10.8) K/uL RBC 5.45 (4.7-6.1) M/uL Hgb 16.2 (14.0-18.0) g/dL Hct 46.6 (42-52) % MCV 85.5 (80-100) fL MCH 29.7 (25-34) pg MCHC 34.8 (32-36) g/dL RDW Std Deviation 42.9 (36.4-46.3) fL RDW Coeff of Boni 13.9 (11.5-14.5) % Plt Count 147 (130-400) K/uL MPV 11.2 H (7.4-10.4) fL Immature Gran % (Auto) 0.1 % Neut % (Auto) 77.3 % Lymph % (Auto) 14.3 % [place] % (Auto) 7.4 % Eos % (Auto) 0.6 % Baso % (Auto) 0.3 % Neut # (Auto) 5.24 (1.4-6.5) K/uL Lymph # (Auto) 0.97 L (1.2-3.4) K/uL [place] # (Auto) 0.50 (0.11-0.59) K/uL Eos # (Auto) 0.04 (0-0.5) K/uL Baso # (Auto) 0.02 (0-0.2) K/uL Immature Gran # (Auto) 0.01 (0.00-0.02) K/uL Sodium 138 (136-145) mmol/L Potassium 4.1 (3.5-5.1) mmol/L Chloride 105 (98-107) mmol/L Carbon Dioxide 30 (21-32) mmol/L Anion Gap 3.0 (3-11) BUN 16 (7-18) mg/dl Creatinine 1.16 (0.6-1.4) mg/dl Est Cr Clr Drug Dosing 71.6 ml/min Est GFR ( Amer) 74.1 ml/min Est GFR (Non-Af Amer) 63.9 ml/min BUN/Creatinine Ratio 13.7 (10-20) Glucose 136 H (70-99) mg/dl Calcium 9.2 (8.5-10.1) mg/dl Total Bilirubin 0.9 (0.2-1) mg/dl AST 27 (15-37) U/L ALT 39 (12-78) U/L Alkaline Phosphatase 82 (45-117) U/L Troponin I < 0.015 (0-0.045) ng/ml Total Protein 7.4 (6.4-8.2) gm/dl Albumin 4.1 (3.4-5.0) gm/dl Globulin 3.3 (2.5-4.0) gm/dl Albumin/Globulin Ratio 1.2 (0.9-2) Lipase 99 (73-393) U/L COVID-19 Eval Order Covid19 at [facility] SARS-CoV-2 (PCR) (Negative) 09/17/20 Range/Units 05:35 WBC (4.8-10.8) K/uL RBC (4.7-6.1) M/uL Hgb (14.0-18.0) g/dL Hct (42-52) % MCV (80-100) fL MCH (25-34) pg MCHC (32-36) g/dL RDW Std Deviation (36.4-46.3) fL RDW Coeff of Boni (11.5-14.5) % Plt Count (130-400) K/uL MPV (7.4-10.4) fL Immature Gran % (Auto) % Neut % (Auto) % Lymph % (Auto) % [place] % (Auto) % Eos % (Auto) % Baso % (Auto) % Neut # (Auto) (1.4-6.5) K/uL Lymph # (Auto) (1.2-3.4) K/uL [place] # (Auto) (0.11-0.59) K/uL Eos # (Auto) (0-0.5) K/uL Baso # (Auto) (0-0.2) K/uL Immature Gran # (Auto) (0.00-0.02) K/uL Sodium (136-145) mmol/L Potassium (3.5-5.1) mmol/L Chloride (98-107) mmol/L Carbon Dioxide (21-32) mmol/L Anion Gap (3-11) BUN (7-18) mg/dl Creatinine (0.6-1.4) mg/dl Est Cr Clr Drug Dosing ml/min Est GFR ( Amer) ml/min Est GFR (Non-Af Amer) ml/min BUN/Creatinine Ratio (10-20) Glucose (70-99) mg/dl Calcium (8.5-10.1) mg/dl Total Bilirubin (0.2-1) mg/dl AST (15-37) U/L ALT (12-78) U/L Alkaline Phosphatase (45-117) U/L Troponin I (0-0.045) ng/ml Total Protein (6.4-8.2) gm/dl Albumin (3.4-5.0) gm/dl Globulin (2.5-4.0) gm/dl Albumin/Globulin Ratio (0.9-2) Lipase (73-393) U/L COVID-19 Eval Order SARS-CoV-2 (PCR) NEGATIVE (Negative) Administered Medications Sodium Chloride (Nss) 500 mls @ 125 mls/hr IV .Q4H MARY GRACE Stop: 10/17/20 05:44 Last Admin: 09/17/20 08:15 Dose: Not Given Documented by: [id number] Sodium Chloride (Nss 1000ml) 1,000 mls @ 115 mls/hr IV .Q8H42M MARY GRACE Stop: 10/17/20 07:42 Last Admin: 09/17/20 08:14 Dose: 115 mls/hr Documented by: [id number] Discontinued Medications Hydromorphone HCl (Hydromorphone Inj 1 Mg/Ml Syringe) 1 mg IV NOW STA Stop: 09/17/20 03:25 Last Admin: 09/17/20 03:32 Dose: 1 mg Documented by: [id number] Ioversol (Optiray 300 100ml) 90 ml IV ONCE ONE Stop: 09/17/20 04:09 Last Admin: 09/17/20 04:09 Dose: 90 ml Documented by: [id number] Ondansetron HCl (Ondansetron Inj 2 Mg/Ml 2 Ml Vial) 4 mg IV NOW STA Stop: 09/17/20 03:25 Last Admin: 09/17/20 03:33 Dose: 4 mg Documented by: [id number] Imaging Data Radiologist's Impression: Abdomen/Pelvis CT 09/17/20 02:36 CT OF THE ABDOMEN AND PELVIS WITH CONTRAST CLINICAL HISTORY: Abdominal pain. Evaluate for incarcerated abdominal wall hernia. COMPARISON STUDY: None. TECHNIQUE: Following IV administration of 90 mL of Optiray, axial images of the abdomen and pelvis were obtained from the lung bases to the proximal femurs. Barb ges were reviewed in the axial, sagittal, and coronal planes. IV contrast was administered without complication. Automated exposure control was utilized for the study. A dose lowering technique was utilized adhering to the principles of ALARA. CT DOSE: 1418.80 mGy.cm FINDINGS: A few small nodules within the lung bases are likely benign. There is mild cardiomegaly. No pneumatosis, free air or portal venous gas is present. The liver, spleen, adrenal glands, kidneys and pancreas are unremarkable. There is no biliary or pancreatic ductal dilatation. There is no peripancreatic or pericholecystic infiltration. No hydronephrosis is present. Previous ventral hernia repair with mesh is noted. Tiny fat-containing ventral hernia is noted. Note is made of multiple loops of mildly dilated small bowel within the mid abdo men. Small bowel feces sign is noted. No transition point within the right mid abdomen on image 293 of 506 is noted. There is mild associated mesenteric infiltration and trace adjacent fluid. There is colonic diverticulosis without evidence for acute diverticulitis. The appendix is not visualized. No suspicious osseous lesions or acute fractures are identified within the visualized skeletal structures. IMPRESSION: 1. Findings consistent with a small bowel obstruction with transition point within the right mid abdomen. Mild associated mesenteric infiltration and fluid. 2. Previous ventral hernia repair with mesh. Small fat-containing hernia. Hernia does not result in the bowel obstruction. 3. Colonic diverticulosis. No evidence for acute diverticulitis. ACT 112: Negative or not required by law. Electronically signed by: Adis Velasquez M.D. 09/17/2020 7:32 AM Discharge Plan Visit Data Chief Complaint: Abdominal Pain Stated Complaint: HIGH ABD. PAIN, VOMITING, SYNCOPE ED Provider: Leena Hinds Discharge Problem: Small bowel obstruction Patient Disposition: Admitted As Inpatient Discharge Instructions Interventions: ED Discharge Assessment Last Done: 09/17/20 07:20
[2020-09-17 03:00] LABS: Basophils # (auto) 0.02 K/uL (0-0.2); Basophils % (auto) 0.3 %; Eosinophils # (auto) 0.04 K/uL (0-0.5); Eosinophils % (auto) 0.6 %; Hematocrit (blood only) 46.6 % (42-52); Hemoglobin 16.2 g/dL (14.0-18.0); Immature Granulocytes # (auto) 0.01 K/uL (0.00-0.02); Immature Granulocytes % (auto) 0.1 %; Lymphocytes # (auto) 0.97 K/uL (1.2-3.4); Lymphocytes % (auto) 14.3 %; Mean Corpuscular Hemoglobin 29.7 pg (25-34); Mean Corpuscular Hgb Conc 34.8 g/dL (32-36); Mean Corpuscular Volume 85.5 fL (80-100); Mean Platelet Volume 11.2 fL (7.4-10.4); Monocytes % (auto) 7.4 %; Neutrophils # (auto) 5.24 K/uL (1.4-6.5); Neutrophils % (auto) 77.3 %; Platelet Count 147 K/uL (130-400); RDW Coefficient of Variation 13.9 % (11.5-14.5); RDW Standard Deviation 42.9 fL (36.4-46.3); Red Blood Count 5.45 M/uL (4.7-6.1); White Blood Count 6.78 K/uL (4.8-10.8)
[2020-09-17] MEDS ORDERED: HYDROmorphone INJ 1 MG/ML SYRINGE IV STA (03:24)
[2020-09-17] MEDS ORDERED: ONDANSETRON INJ 2 MG/ML 2 ML VIAL IV STA (03:24)
[2020-09-17 03:35] LABS: Alanine Aminotransferase 39 U/L (12-78); Albumin Level 4.1 gm/dl (3.4-5.0); Aspartate Aminotransferase 27 U/L (15-37); BUN Creatinine Ratio 13.7 (10-20); Blood Urea Nitrogen 16 mg/dl (7-18); Calcium 9.2 mg/dl (8.5-10.1); Carbon Dioxide 30 mmol/L (21-32); Chloride 105 mmol/L (98-107); Creatinine Clr Calc Pharmacy 71.6 ml/min; Est GFR (African American) 74.1 ml/min; Est GFR (Non-African American) 63.9 ml/min; Glucose 136 mg/dl (70-99); Lipase 99 U/L (73-393); Potassium 4.1 mmol/L (3.5-5.1); Sodium 138 mmol/L (136-145)
[2020-09-17 03:40] LABS: Albumin Globulin Ratio 1.2 (0.9-2); Alkaline Phosphatase 82 U/L (45-117); Bilirubin,Total 0.9 mg/dl (0.2-1); Globulin 3.3 gm/dl (2.5-4.0); Total Protein 7.4 gm/dl (6.4-8.2); Troponin I < 0.015 ng/ml (0-0.045)
[2020-09-17] MEDS ORDERED: OPTIRAY 300 100mL IV ONE (04:08)
--- NOTE | 2020-09-17 06:14 | History & Physical Report ---
Date of Service September 17, 2020 Assessment & Plan (1) Small bowel obstruction: Mr. Ta is a 69 yo male with a PMHx of GERD who presented to the emergency department with epigastric pain with associated nausea/vomiting. - Cat scan of the abdomen showed evidence of a small bowel obstruction; official read pending - given benign exam and + bowel sounds, will hold off on NG tube placement a this time - risk factors for bowel obstruction appear minimal (one prior laparoscopic abdominal hernia repair; patient does have hx of neuropathy, possible he has concurrent gastroparesis) - NPO. Advance diet as tolerated - IVF for maintenance hydration - Tylenol prn for mild-moderate pain. Morphine prn for severe pain - zofran prn for nausea (2) Neuropathy: - continue home dose gabapentin 300mg tid (3) GERD (gastroesophageal reflux disease): - hold home dose omeprazole - patient had evidence of esophagitis on CT scan of abdomen (likely secondary to SBO) - continue IV pepcid 20mg BID while NPO Dipso: Med/surg Diet: NPO, advance as tolerated DVT ppx: Lovenox Code: Full History of Present Illness Primary Care Provider: Ivan Rojas MD Mr. Ta is a 69 yo gentleman with a PMHX of GERD who presented for acute epigastric pain with associated nausea and vomiting. Patient was in his usual state of health the day prior to admission. He ate dinner and several hours later the symptoms began. There was no blood in his vomitus; no coffee-ground appearance. No diarrhea. He has had a laparoscopic abdominal hernia repair 7-8 years ago. Otherwise, no abdominal surgeries. No history of malignancy or abdominal radiation. No inflammatory bowel disease. He has never had a bowel obstruction before. In the ED, his CBC was normal, CMP normal. Lipase not elevated. Trop undetectable. A/P CT scan STAT RAD showing small bowel obstruction; evidence of esophagitis, and colonic diverticulosis. Patient was given 1mg of Dilaudid for pain and 4mg zofran for nausea. Allergies Allergy/AdvReac Type Severity Reaction Status Date / Time No Known Allergies Allergy Verified 09/17/20 02:40 Home Medications Medication Instructions Recorded Confirmed Type multivitamin 1 tab PO QAM 04/24/18 09/17/20 History gabapentin 300 mg capsule 300 mg PO TID #90 cap 08/04/20 09/17/20 Rx allopurinol 100 mg tablet 100 mg PO DAILY #90 tab 08/09/20 09/17/20 Rx omeprazole 20 mg capsule,delayed 20 mg PO DAILY #90 cap 08/11/20 09/17/20 Rx release alpha lipoic acid 200 mg PO TID 09/17/20 09/17/20 History Past Med/Surg History Medical History (Updated 09/17/20 @ 08:19 by Leena Hinds DO) Anemia GERD (gastroesophageal reflux disease) Gout Hearing deficit Neuropathy BLE Osteoarthritis Surgical History H/O elbow surgery Unsure what was done History of appendectomy History of carpal tunnel release left History of carpal tunnel surgery of right wrist History of colonoscopy (~01/07/19) repeat in 10 years History of esophagogastroduodenoscopy (EGD) (~11/28/17) History of tooth extraction History of total left knee replacement History of umbilical hernia repair 05/13/14: MAC #4, ETT #7.5, HiLo Oral, Grade 2 View Hx of arthroscopy of right knee (~01/13/19) Hx of rotator cuff surgery RIGHT Hx of vasectomy S/P trigger finger release Right thumb Family History Father Family history of diabetes mellitus Heart disease Son Family history of stomach cancer 2017 from stomach cancer Other No family history of adverse response to anesthesia Social History Smoking Status: Never smoker Second Hand Exposure: No; Hx Alcohol Use: No Hx Substance Use: No Preferred Language: Korean Communication Ability: Effective Reading Efficiency Course Director Required: No Beliefs That Will Affect Care: None marital status: Current Living Situation: Spouse current occupational status: retired current occupation: previoulsy worked at [employer] for 39 years Other Information That Helps Us Care for You: No Feels Safe at Home: Yes Safety Concerns: Feels Safe At This Time Seatbelt Use: always Assistive Devices: Glasses and Hearing Aid - Left Review of Systems Gastrointestinal: + abdominal pain and + nausea Physical Exam Constitutional: WD/WN, vitals as above cooperative; no acute distress Eyes: + anicteric sclerae ENMT: external ear and nose normal, oropharynx normal Neck: normal visual inspection and trachea midline Respiratory: normal respiratory effort, lungs clear to auscultation no cough Auscultation: no crackles, no rales and no wheezes Cardiovascular: RRR, no murmur, no edema Heart Sounds: normal S1 and normal S2 Extremities: no pedal edema Gastrointestinal (Abdomen): Inspection/Auscultation: + abdomen distended and normal bowel sounds Percussion/Palpation: + abdomen tender (epigastric area) and abdomen soft; no guarding Skin: no rashes, warm and dry Psychiatric: A+Ox3, euthymic affect Results & Data Results & Data ([facility]) Vital Signs (Past 12 Hours) Vital Signs Temp Pulse Resp BP Pulse Ox 09/17/20 04:30 46 L 15 118/77 96 09/17/20 04:00 48 L 12 123/83 98 09/17/20 03:30 108 H 15 137/111 H 09/17/20 03:00 112 H 15 156/108 H 97 09/17/20 02:36 18 92 09/17/20 02:30 55 L 18 140/93 93 09/17/20 02:21 57 L 19 148/97 H 94 09/17/20 02:11 35.4 C L 57 L 18 142/103 H 97 Supervising Physician Co-Signing Physician Notes Attending addendum: I have physically seen this patient, have supervised the medical residents activities, and agree with the H&P unless as otherwise noted. Assessment and Plan: Small bowel obstruction/GERD- Transition in right mid abdomen No NG tube at this time NPO Zofran 4 mg IV every 6 hours as needed Famotidine 20 mg IV every 12 hours IV fluids Patient did not have any specific risk factors, such as previous surgeries. Question for may be an element of gastroparesis, with his history of unexplained peripheral neuropathy If not seen by Case this admission, should be seen by him in follow-up Peripheral neuropathy- Hold gabapentin while n.p.o. Remaining orders and notations as noted Resident Activity Tracking Resident Involvement: Resident Care Provided Care Provided: Adult [facility] Medicine
--- NOTE | 2020-09-17 07:06 | Hospitalist Progress Note ---
Date of Service September 17, 2020 Assessment & Plan (1) Small bowel obstruction: Mr. Ta is a 69 y/ M w/ GERD, gout, neuropathy, and predm (a1c5.9 in 2019) who presents w/ SBO (symptoms: N/V/epigastric pain). SBO - CT abdomen: sbo w/ transition pt in R mid abd. mild mesenteric infiltration/fluid. previous ventral hernia repair w/ mesh, not related to the SBO. benign mild lung nodules. - normal lipase at admission - did not place NG tube as patient had relatively benign presentation/exam (+BS at admission). + flatus, burping, and normal BM reassuring. - doing well on 09/17 as patient had soft abd. No pain except for 2 brief episodes during the day. Has not needed any pain medication during the day - on 09/17 exam, mild-mod TTP at epigastrium w/ some at LLQ - risk factors for bowel obstruction appear minimal (one prior laparoscopic abdominal hernia repair; patient does have hx of neuropathy, possible he has concurrent gastroparesis) - NPO+IVF at admission, since transitioned to clears and no IVF on 09/17 - PO Tylenol prn for mild-moderate pain. Morphine prn for severe pain - zofran prn for nausea - plan is to advance diet from clears on 09/18 neuropathy - continue home dose gabapentin 300mg tid GERD - hold home dose omeprazole - patient had evidence of esophagitis on CT scan of abdomen (likely secondary to SBO) - continue IV pepcid 20mg BID while NPO mild lung nodules - per CT abd - outpt f/u gout - stable, continue home allopurinol Dipso: Med/surg Diet: Clear liquids DVT ppx: Lovenox Code: Full (2) Neuropathy: (3) GERD (gastroesophageal reflux disease): (4) Gout: Supervising Physician Co-Signing Physician Notes I personally examined the patient and verified all richey points of history and exam, discussed case, and agree with decision making with Dr Tate. Feeling better already. Far less pain. No nausea. Vitals noted, in general he is awake and alert pleasant no distress. HEENT normocephalic atraumatic mucous membranes moist. Abdomen is soft mildly distended hernias palpable soft nontender. No guarding no rebound no rigidity. SBOappears much more consistent with adhesions and then herniaalready seems to be improving. Cautious clear liquids. Otherwise as above. Subjective Last normal bm last night 8pm. 1 minute of epigastric pain 5/10 intensity, much milder than his admission pains. Currently, no pain. V last night liquid foodstuff. No hx of abd pains in past. Last night was first incident, lasted 10min. 230am came back so came to ed. no radiation. 6-8 episodes emesis. + flatus and burping. He felt bloated/firm stomach last night, feels better now. Review of Systems Review of Systems: Constitutional: Denies fever, chills Eyes: Denies blurry vision, vision changes ENT: Denies sore throat Cardiovascular: Denies chest pain, palpitations Respiratory: Denies shortness of breath Gastrointestinal: Denies abdominal pain, nausea, vomiting, constipation, diarrhea, bloody stool Genitourinary: Denies urinary symptoms including dysuria Musculoskeletal: Denies weakness, muscle aches/pain, joint aches/pain Neurological: Denies headache, focal weakness. hx neuropathy. chronic numbness/tingling of toes. Physical Exam Physical Exam: General: Grossly A&O. NAD. Cooperative. HEENT: Atraumatic, normocephalic. EOMI Pulm: CTAB. -wheezes, -rales, -rhonchi. No respiratory distress. Cardiac: RRR, -mrg. Radial pulses intact and symmetrical. No LE edema. Abdominal: Mild-mod epigastric ttp. nondistended, soft. No rebound or guarding. +bs lower quadrants. Some LLQ TTP on attending exam. Results & Data Results & Data ([facility]) Vital Signs (Past 12 Hours) Vital Signs Temp Pulse Resp BP Pulse Ox 09/17/20 06:30 54 L 15 126/77 93 09/17/20 06:00 55 L 16 118/77 96 09/17/20 05:30 54 L 14 127/83 94 09/17/20 05:00 87 22 126/93 92 09/17/20 04:30 46 L 15 118/77 96 09/17/20 04:00 48 L 12 123/83 98 09/17/20 03:30 108 H 15 137/111 H 09/17/20 03:00 112 H 15 156/108 H 97 09/17/20 02:36 18 92 09/17/20 02:30 55 L 18 140/93 93 09/17/20 02:21 57 L 19 148/97 H 94 09/17/20 02:11 35.4 C L 57 L 18 142/103 H 97 Resident Activity Tracking Resident Involvement: Resident Care Provided Care Provided: Adult [facility] Medicine
--- NOTE | 2020-09-17 07:34 | CT Scan Report ---
CT OF THE ABDOMEN AND PELVIS WITH CONTRAST CLINICAL HISTORY: Abdominal pain. Evaluate for incarcerated abdominal wall hernia. COMPARISON STUDY: None. TECHNIQUE: Following IV administration of 90 mL of Optiray, axial images of the abdomen and pelvis we re obtained from the lung bases to the proximal femurs. Images were reviewed in the axial, sagittal, and coronal planes. IV contrast was administered without complication. Automated exposure control wa s utilized for the study. A dose lowering technique was utilized adhering to the principles of ALARA . CT DOSE: 1418.80 mGy.cm FINDINGS: A few small nodules within the lung bases are likely benign. There is mild cardiomegaly. No pneumatosis, free air or portal venous gas is present. The liver, spleen, adrenal glands, kidneys an d pancreas are unremarkable. There is no biliary or pancreatic ductal dilatation. There is no peripan creatic or pericholecystic infiltration. No hydronephrosis is present. Previous ventral hernia repair with mesh is noted. Tiny fat-containing ventral hernia is noted. Note is made of multiple loops of m ildly dilated small bowel within the mid abdomen. Small bowel feces sign is noted. No transition poin t within the right mid abdomen on image 293 of 506 is noted. There is mild associated mesenteric infi ltration and trace adjacent fluid. There is colonic diverticulosis without evidence for acute diverti culitis. The appendix is not visualized. No suspicious osseous lesions or acute fractures are identif ied within the visualized skeletal structures. IMPRESSION: 1. Findings consistent with a small bowel obstruction with transition point within the right mid abdo men. Mild associated mesenteric infiltration and fluid. 2. Previous ventral hernia repair with mesh. Small fat-containing hernia. Hernia does not result in t he bowel obstruction. 3. Colonic diverticulosis. No evidence for acute diverticulitis. ACT 112: Negative or not required by law. Electronically signed by: Adis Velasquez M.D. 09/17/2020 7:32 AM
[2020-09-17] MEDS ORDERED: SODIUM CHLORIDE 0.9% 1000ML 1,000 ML IV SCH (07:43)
[2020-09-17] MEDS ORDERED: ACETAMINOPHEN 1,000 MG/100 ML VIAL IV PRN (07:43)
[2020-09-17] MEDS ORDERED: MoRPHine SULFATE 2 MG/ML CARP IV PRN (07:43)
[2020-09-17] MEDS ORDERED: ONDANSETRON INJ 2 MG/ML 2 ML VIAL IV PRN (07:43)
[2020-09-17] MEDS: SODIUM CHLORIDE 0.9% 500 ML IV SCH ×3 (08:15→13:05)
[2020-09-17] MEDS: allopurinoL 100 MG TAB PO SCH (08:45)
[2020-09-17] MEDS: GABAPENTIN 300 MG CAP PO SCH ×3 (08:45→21:03)
[2020-09-17] MEDS: ENOXAPARIN INJ 40 MG/0.4 ML SYR SQ SCH (08:45)
[2020-09-17] MEDS: FAMOTIDINE 20 MG in SYRINGE 3 ML IV SCH ×2 (08:45→21:03)
[2020-09-17 11:42] LABS: Appearance Urine Clear (Clear); Bilirubin Urine Negative (Negative); Blood Urine Negative (Negative); Color Urine Yellow; Glucose Urine UA Negative (Negative); Ketones Urine Negative (Negative); Leukocyte Esterase Urine Negative (Negative); Nitrite Urine Negative (Negative); Protein Urine Negative (Negative); Specific Gravity Urine 1.026 (1.000-1.030); Urobilinogen Urine Negative (Negative); pH Urine 7.5 (4.5-7.5)
--- NOTE | 2020-09-17 16:30 | Electrocardiogram Report ---
Test Reason : Blood Pressure : / mmHG Vent. Rate : 093 BPM Atrial Rate : 093 BPM P-R Int : 208 ms QRS Dur : 100 ms QT Int : 366 ms P-R-T Axes : 000 -41 070 degrees QTc Int : 455 ms Sinus rhythm with marked sinus arrhythmia with occasional Premature ventricular complexes and ectopic atrial rhythm Left axis deviation Abnormal ECG Confirmed by Vicente Ladd ([id number]) on 09/17/2020 4:30:40 PM Referred By: REFERRED SELF Confirmed By:Neto Ladd
[2020-09-17] MEDS ORDERED: ACETAMINOPHEN 500 MG TAB PO PRN (18:19)
--- NOTE | 2020-09-17 19:49 | Billing Data ---
Date of Service September 17, 2020 Coding Level of Care Code 15343 Initial Inpt Care Lvl 2
[2020-09-18 06:16] LABS: BUN Creatinine Ratio 13.8 (10-20); Calcium 8.3 mg/dl (8.5-10.1); Creatinine Clr Calc Pharmacy 94.3 ml/min; Est GFR (African American) 93.1 ml/min; Est GFR (Non-African American) 80.3 ml/min; Potassium 4.3 mmol/L (3.5-5.1)
--- NOTE | 2020-09-18 07:09 | Hospitalist Progress Note ---
Date of Service September 18, 2020 Assessment & Plan (1) Small bowel obstruction: Mr. Ta is a 69 y/ M w/ GERD, gout, neuropathy, and predm (a1c5.9 in 2020) who presents w/ SBO (symptoms: N/V/epigastric pain). vitals appropriate. mariano in the 50s. BMP wnl, unchanged. UA neg. Has not needed pain PRNs. Advance diet from clears as tolerated. consider advance to low fat regualar diet and home in evening? SBO - CT abdomen: sbo w/ transition pt in R mid abd. mild mesenteric infiltration/fluid. previous ventral hernia repair w/ mesh, not related to the SBO. benign mild lung nodules. - normal lipase at admission - did not place NG tube as patient had relatively benign presentation/exam (+BS at admission). + flatus, burping, and normal BM reassuring. - doing well on 09/17 as patient had soft abd. No pain except for 2 brief episodes during the day. Has not needed any pain medication during the day - on 09/17 exam, mild-mod TTP at epigastrium w/ some at LLQ - risk factors for bowel obstruction appear minimal (one prior laparoscopic abdominal hernia repair; patient does have hx of neuropathy, possible he has concurrent gastroparesis) - NPO+IVF at admission, since transitioned to clears and no IVF on 09/17 - PO Tylenol prn for mild-moderate pain. Morphine prn for severe pain - zofran prn for nausea - plan is to advance diet from clears on 09/18 neuropathy - continue home dose gabapentin 300mg tid GERD - hold home dose omeprazole - patient had evidence of esophagitis on CT scan of abdomen (likely secondary to SBO) - continue IV pepcid 20mg BID while NPO mild lung nodules - per CT abd - outpt f/u gout - stable, continue home allopurinol Dipso: Med/surg Diet: Clear liquids DVT ppx: Lovenox Code: Full (2) Neuropathy: (3) GERD (gastroesophageal reflux disease): (4) Gout: Admission and Anticipated Discharge Date Admission Date: September 17, 2020 Subjective Feeling great. Tolerated clears. No BM. No N/V, abd pain. Review of Systems Review of Systems: Constitutional: Denies fever, chills, weight change Eyes: Denies blurry vision, vision changes ENT: Denies sore throat, sinus pain Cardiovascular: Denies chest pain, palpitations Respiratory: Denies shortness of breath Gastrointestinal: Denies abdominal pain, nausea, vomiting, constipation, diarrhea Genitourinary: Denies urinary symptoms including dysuria Musculoskeletal: Denies weakness, muscle aches/pain, joint aches/pain Neurological: Denies headache, numbness, tingling, focal weakness Physical Exam Physical Exam: General: Grossly A&O. NAD. Cooperative. HEENT: Atraumatic, normocephalic. EOMI Pulm: CTAB. -wheezes, -rales, -rhonchi. No respiratory distress. Cardiac: RRR, -mrg. Trace LE edema. Abdominal: Nontender, nondistended, soft. NO epigas ttp. Very slight distention. Good BS all 4 quadrants Results & Data Results & Data ([facility]) Vital Signs (Past 12 Hours) Vital Signs Temp Pulse Resp BP Pulse Ox 09/17/20 22:29 36.6 C 58 L 18 117/75 95 Resident Activity Tracking Resident Involvement: Resident Care Provided Care Provided: Adult Hospital Medicine
[2020-09-18] MEDS: FAMOTIDINE 20 MG in SYRINGE 3 ML IV SCH (08:21)
[2020-09-18] MEDS: allopurinoL 100 MG TAB PO SCH (08:21)
[2020-09-18] MEDS: GABAPENTIN 300 MG CAP PO SCH ×2 (08:21→14:42)
[2020-09-18] MEDS: ENOXAPARIN INJ 40 MG/0.4 ML SYR SQ SCH (08:22)
--- NOTE | 2020-09-18 14:02 | Discharge Summary ---
Date of Service September 18, 2020 Admission HPI Per Admitting Provider Mr. Ta is a 69 yo gentleman with a PMHX of GERD who presented for acute epigastric pain with associated nausea and vomiting. Patient was in his usual state of health the day prior to admission. He ate dinner and several hours later the symptoms began. There was no blood in his vomitus; no coffee-ground appearance. No diarrhea. He has had a laparoscopic abdominal hernia repair 7-8 years ago. Otherwise, no abdominal surgeries. No history of malignancy or abdominal radiation. No inflammatory bowel disease. He has never had a bowel obstruction before. In the ED, his CBC was normal, CMP normal. Lipase not elevated. Trop undetectable. A/P CT scan STAT RAD showing small bowel obstruction; evidence of esophagitis, and colonic diverticulosis. Patient was given 1mg of Dilaudid for pain and 4mg zofran for nausea. Admission Exam Per Admitting Provider Constitutional: WD/WN, vitals as above cooperative; no acute distress Eyes: + anicteric sclerae ENMT: external ear and nose normal, oropharynx normal Neck: normal visual inspection and trachea midline Respiratory: normal respiratory effort, lungs clear to auscultation no cough Auscultation: no crackles, no rales and no wheezes Cardiovascular: RRR, no murmur, no edema Heart Sounds: normal S1 and normal S2 Extremities: no pedal edema Gastrointestinal (Abdomen): Inspection/Auscultation: + abdomen distended and normal bowel sounds Percussion/Palpation: + abdomen tender (epigastric area) and abdomen soft; no guarding Skin: no rashes, warm and dry Psychiatric: A+Ox3, euthymic affect Principal Diagnosis adhesional SBO Discharge Exam General: Grossly A&O. NAD. Cooperative. HEENT: Atraumatic, normocephalic. EOMI Pulm: CTAB. -wheezes, -rales, -rhonchi. No respiratory distress. Cardiac: RRR, -mrg. Trace LE edema. Abdominal: Nontender, nondistended, soft. NO epigas ttp. Very slight distention. Good BS all 4 quadrants Discharge Data Allergies Allergy/AdvReac Type Severity Reaction Status Date / Time No Known Allergies Allergy Verified 09/17/20 02:40 Consultations 09/17/20 05:17 ED Decision to Admit Stat Ordered Studies 09/17/20 02:36 CT abd pelvis IV con only Urgent Hospital Course (1) Small bowel obstruction: Mr. Ta is a 69 y/ M w/ GERD, gout, neuropathy, and predm (a1c5.9 in 2019) who presented w/ SBO (symptoms: N/V/epigastric pain). - f/u w/ pcp in 1 wk - no med changes were made SBO, likely adhesional from hx of hernia repair This was a mild case and he improved clinically w/o need of an NG tube. His diet was advanced back to regular diet. He had epigastric tenderness and BS only in the lower quadrants. However, by day of discharge, BS in all 4 quadrants and no TTP. 09/17/20 CT abd/pelv w/ IV contrast IMPRESSION: 1. Findings consistent with a small bowel obstruction with transition point within the right mid abdomen. Mild associated mesenteric infiltration and fluid. 2. Previous ventral hernia repair with mesh. Small fat-containing hernia. Hernia does not result in the bowel obstruction. 3. Colonic diverticulosis. No evidence for acute diverticulitis. neuropathy - continue home gabapentin GERD - patient had evidence of esophagitis on CT scan of abdomen (likely secondary to SBO) - restart home omeprazole upon discharge from hospital mild lung nodules - per CT abd: " A few small nodules within the lung bases are likely benign." - outpt f/u gout - stable, continue home allopurinol (2) Neuropathy: (3) GERD (gastroesophageal reflux disease): (4) Gout: Total Time Total Time Spent Total Time Spent (In Minutes): <30 Discharge Plan Discharge Items Patient Disposition: Home - Self-Care Reason For Visit: BOWEL OBSTRUCTION Discharge Diagnosis: small bowel obstruction Activity: Resume your previous activity Non-emergency contact: Primary Care Provider Call non-emergency contact if: you have any medication questions, your symptoms worsen and you have a fever Follow-up/Referrals: Ivan Rojas III, MD [Primary Care Provider] - (A follow up appt with your PCP will be scheduled for you and a [facility] staff member will phone you with the time and date of your follow up. If you are unable to keep the scheduled appt, please phone Dr. Gambino office to reschedule.) Diet: Regular Addtl Attending Provider Instructions: Hi Mr. Ta, You were admitted to [facility] for abdominal pain and found to have a small bowel obstruction on CT scan. Your symptoms were mild and you did not require any intervention such as a gastric tube. You were advanced from not eating to clear liquids, to a regular diet. No medication changes were made. Please follow up with your primary care doctor in 1 week. An appointment will be requested for you, but if you do not receive a call from the scheduling office within 1-2 days, please make the appointment yourself. If you develop any new or worsening symptoms including fever, chills, sweats, chest pain, chest pressure, difficulty breathing, uncontrolled nausea/vomiting, firm stomach, rash, wheezing, passing out or nearly passing out, bleeding, black/bloody bowel movements, or other new or concerning symptoms please call your primary care physician, or call 911 for re-evaluation in the emergency department if you are very concerned. Pending Studies at Discharge: No Stand-Alone Forms: [facility], Sm[facility] Cess[facility] Medications and DC Order Prescriptions: Continued gabapentin 300 mg capsule 300 mg PO TID Qty: 90 RF: 2 allopurinol 100 mg tablet 100 mg PO DAILY Qty: 90 RF: 3 omeprazole 20 mg capsule,delayed release(DR/EC) 20 mg PO DAILY Qty: 90 RF: 3 multivitamin Tablet 1 tab PO QAM RF: 0 alpha lipoic acid 200 mg Tablet 200 mg PO TID RF: 0 Discharge Orders: Discharge Order (Routine); Ordered 09/18/20 Ordered By: Elmer Urena/Other Patient Handouts: Preventing Deep Vein Thrombosis Admission Data Admit Date/Time: 09/17/20 05:54 Attending Provider: Hans Li Admit Provider: Zane Bermudez Primary Care Provider: Ivan Rojas III Other Providers: Elmer Tate ; Zane Bermudez Other Interventions: Discharge Summary Assessment (RN) Last Done: 09/18/20 15:49 Supervising Physician Co-Signing Physician Notes I personally examined the patient and verified all richey points of history and exam, discussed case, and agree with decision making with Dr Tate feeling better eating well feels up to going home vitals noted nad heent nc at mmm abd soft nd nt no guarding no rebound no masses SBO - adhesional and resolved. does have hernia but this has been soft/NT and on CT hernia is visualized as clearly being separate from area involved in SBO. safe for home. outpt f/u otherwise as above Resident Activity Tracking Resident Involvement: Resident Care Provided Care Provided: Adult [facility] Medicine
--- NOTE | 2020-09-18 15:07 | Communication Note ---
Date of Service: September 18, 2020 By CMS guidelines, a determination that the admission or continued stay is not medically necessary has been made by a member of the UR committee and a physic gabriella for this hospital stay, therefore a Code 44 will be completed and the Inpatient admission will be changed to outpatient.
--- NOTE | 2020-09-18 17:58 | Billing Data ---
Date of Service September 18, 2020 Coding Level of Care Code D/C Day Management <30 mins
== END 2020-09-18 17:49 | disposition home or self-care (01) ==
LOC: ED 02:07 → INTOOBSV 05:54 → 3N 05:54 → SUATTDRO 05:54 → 3N 07:20